=== PATIENT | male | born 1980 | race Caucasian/White ===

== ENCOUNTER 2023-08-18 08:10 | Outpatient (CLI) | payer BC, SELFPAY ==
--- NOTE | 2023-10-07 11:56 | ONC.NURNOTE ---
Received referral to see patient for transfer of care, records needed from [facility]. Faxed request that was scanned into system to appropriate area, will schedule once obtained, patiet aware that waiting on records.
== END 2023-08-18 08:11 | disposition home or self-care (01) ==
LOC: NFLDREF 08-28 13:48
PROVIDERS: PCP Family Medicine; Referring Provider Family Medicine; Visit Provider Family Medicine
DX: E78.00 Pure hypercholesterolemia, unspecified (principal); I10 Essential (primary) hypertension; C81.70 Other Hodgkin lymphoma, unspecified site; M54.12 Radiculopathy, cervical region; R61 Generalized hyperhidrosis; F32.A Depression, unspecified; R00.0 Tachycardia, unspecified
CPT/HCPCS: 80061; 82306; 82607; 84270; 84402; 84403; 84443; 86140; 86480

== ENCOUNTER 2023-12-21 12:52 | Outpatient (RCR) | payer BC, SELFPAY ==
[2023-12-10 13:01] LABS: Basophils Absolute Auto 0.05 K/uL (0.00-0.30); Basophils Percent Auto 0.7 % (0.0-3.0); Eosinophils Absolute Auto 0.15 K/uL (0.00-0.50); Eosinophils Percent Auto 2.2 % (0.0-7.0); Hematocrit 47.4 % (37.0-53.0); Immature Granulocytes Abs Auto 0.03 K/uL (0.00-0.30); Immature Granulocytes Pct Auto 0.4 %; Lymphocytes Absolute Auto 1.97 K/uL (0.90-2.90); Mean Corpuscular HGB Conc 34 gm/dL (32-36); Mean Corpuscular Hemoglobin 30 pg (26-34); Mean Corpuscular Volume 88 fL (80-100); Monocytes Percent Auto 8.4 % (0.0-11.0); Neutrophils Absolute Auto 4.02 K/uL (1.7-7.0); Neutrophils Percent Auto 59.3 % (42.0-72.0); Platelet Count* 226 K/uL (140-440); Red Blood Count 5.38 m/uL (4.30-5.90); Slide Review Reflex No; White Blood Count* 6.79 K/uL (4.50-11.00)
[2023-12-10 13:14] LABS: Albumin* 5.1 g/dL (3.3-5.0); Chloride* 101 mmol/L (96-114)
[2023-12-10 13:15] LABS: Potassium* 4.4 mmol/L (3.6-5.1); Sodium* 138 mmol/L (135-149)
[2023-12-10 13:17] LABS: Anion Gap 8 mEq/L (7-15); Bilirubin Total* 0.9 mg/dL (0.1-1.5); Carbon Dioxide* 29 mmol/L (20-32); Creatinine* 0.9 mg/dL (0.5-1.5); Estimated Glomerular Filt Rate 108 ml/min
[2023-12-10 13:18] LABS: Alanine Aminotransferase* 60 U/L (4-50); Alkaline Phosphatase* 79 U/L (40-150); Aspartate Amino Transferase* 43 U/L (12-35); Blood Urea Nitrogen* 12 mg/dL (5-24); Calcium* 9.3 mg/dL (8.4-10.6); Glucose* 88 mg/dL (60-115); Lactate Dehydrogenase* 202 U/L (120-246)
[2023-12-10 13:43] LABS: Erythrocyte SedimentationRate* 10 mm/hr (2-15)
--- NOTE | 2023-12-21 08:31 | ONC.NURNOTE ---
Patient called to check on his appointment time for the day. It was noted that this was not on the schedule. Clinic nurse to work with the provider to see if can call patient or fit him in.
== END 2024-04-16 23:59 | disposition home or self-care (01) ==
LOC: CCIC 12:52
PROVIDERS: PCP Family Medicine; Referring Provider Family Medicine; Visit Provider Internal Medicine Hematology & Oncology
DX: C81.70 Other Hodgkin lymphoma, unspecified site (principal); G58.8 Other specified mononeuropathies; K21.9 Gastro-esophageal reflux disease without esophagitis
CPT/HCPCS: 36415; 78815; 80053; 83615; 85025; 85651; 99202; 99204; 99213; 99214; G0463; A9552

== ENCOUNTER 2024-01-11 06:55 | Outpatient (CLI) | payer BC, SELFPAY ==
--- OUTSIDE RECORDS SUMMARY | 2024-01-11 06:57 | XMS_ITS | Referral Summary ---
Author Organization [place] Address [address] [place] [address] Care Team Providers Care Boarding Mother Name Role Phone Mary Gupta RN Unavailable [phone] Nasim Holcomb PsyD Unavailable Nasim Holcomb PsyD Unavailable [phone] No Ref-Primary, Physician Primary Care Provider Oleg Fleming Unavailable [phone] Allergies Active Allergy Reactions Criticality Noted Date Comments No Known Drug Allergy 10/07/2003 Medications Medication Sig Dispensed Refills Start Date End Date Status propranolol (INDERAL) 60 MG tablet Take 60 mg by mouth Active escitalopram (LEXAPRO) 10 MG tablet Take 1 tablet by mouth daily at 2 pm 11/28/2022 Active tadalafil (CIALIS) 5 MG tablet Take 5 mg by mouth as needed Active Active Problems Problem Noted Date Diagnosed Date Adjustment disorder with mixed anxiety and depre ssed mood 12/17/2022 Dehydration 01/06/2022 Classical Hodgkin lymphoma 12/27/2021 Chemotherapy-induced neutropenia (H24) Nausea 12/27/2021 CARDIOVASCULAR SCREENING; LDL GOAL LESS THAN 160 04/21/2010 Esophageal reflux Resolved Problems Problem Noted Date Diagnosed Date Resolved Date 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 No 05/13/2022 Within the last year, have y ou been humiliated or emotionally abused in other ways by your partner or ex-partner? No Within the last year, have y ou been kicked, hit, slapped, or otherwise physically hurt by your partner or ex-partner? No 05/13/2022 Within the last year, have y ou been raped or forced to have any kind of sexual activity by your partner or ex-partner? No 05/13/2022 PHQ-2 Answer Date Recorded PHQ-2 Score 2 12/17/2022 Adolescent Education Answer Date Record ed Getting School Help Needed Not on file 03/14 Sex and Gender Information Value Date Recorded Sex Assigned at Not on file Gender Identity Not on file Sexual Orientation Not on file Last Filed Vital Signs Vital Sign Reading Time Taken Comments Blood Pressure 125/85 08/28/2023 1:52 PM PARTY CHIEF Pulse 80 08/28/2023 1:52 PM PARTY CHIEF Temperature 36.3 ??C (97.4 ??F) 08/28/2023 1:52 PM CS T Respiratory Rate 12 08/28/2023 1:52 PM PARTY CHIEF Oxygen Saturation 98% 08/28/2023 1:52 PM PARTY CHIEF Inhaled Oxygen Concentration - - Weight 85.1 kg (187 lb 11.2 oz) 08/28/2023 1:52 PM PARTY CHIEF Height 176.5 cm (5' 9.49) 08/28/2023 1:52 PM CS T Body Mass Index 27.33 08/28/2023 1:52 PM PARTY CHIEF Plan of Treatment Not on file Procedures Procedure Name Priority Date/Time Associated Diagnosis Comments COMPREHENSIVE METABOLIC PANEL Routine 08/28/2023 1:48 PM PARTY CHIEF Classical Hodgkin lymphoma (H) LIPID REFLEX TO DIRECT LDL PANEL Routine 07/23/2015 9:07 AM PARTY CHIEF CARDIOVASCULAR SCREENING; LDL GOAL LESS THAN 160 from Last 3 Months or Most Recently Relevant to Health Maintenance Results * (ABNORMAL) Comprehensive metabolic panel (08/28/2023 1:48 PM PARTY CHIEF) [facility] Sodium 140 135 - 145 mmol/L 08/28/2023 2:11 PM [facility] Comment:Reference intervals for this test were updated on 03/17/2023 to more accurately reflect our healthy population. There may be differences in the flagging of prior results with similar values performed with this method. Interpretation of those prior results can be made in the context of the updated reference intervals. Potassium 4.1 3.4 - 5.3 mmol/L 08/28/2023 2:11 PM [facility] Carbon Dioxide (CO2) 28 22 - 29 mmol/L 08/28/2023 2:11 PM [facility] Anion Gap 10 7 - 15 mmol/L 08/28/2023 2:11 PM [facility] Urea Nitrogen 8.5 6.0 - 20.0 mg/dL 08/28/2023 2:11 PM [facility] Creatinine 0.97 0.67 - 1.17 mg/dL 08/28/2023 2:11 PM [facility] GFR Estimate >90 >60 mL/min/1. 73m2 08/28/2023 2:11 PM [facility] Calcium 9.2 8.6 - 10.0 mg/dL 08/28/2023 2:11 PM [facility] Chloride 102 98 - 107 mmol/L 08/28/2023 2:11 PM [facility] Glucose 109(H) 70 - 99 mg/dL 08/28/2023 2:11 PM [facility] Alkaline Phosphatase 85 40 - 150 U/L 08/28/2023 2:11 PM [facility] Comment:Reference intervals for this test were updated on 05/05/2023 to more accurately reflect our healthy population. There may be differences in the flagging of prior results with similar values performed with this method. Interpretation of those prior results can be made in the context of the updated reference intervals. AST 31 0 - 45 U/L 08/28/2023 2:11 PM [facility] Comment:Reference intervals for this test were updated on 12/01/2022 to more accurately reflect our healthy population. There may be differences in the flagging of prior results with similar values performed with this method. Interpretation of those prior results can be made in the context of the updated reference intervals. ALT 43 0 - 70 U/L 08/28/2023 2:11 PM PARTY CH[facility] Comment:Reference intervals for this test were updated on 12/01/2022 to more accurately reflect our healthy population. There may be differences in the flagging of prior results with similar values performed with this method. Interpretation of those prior results can be made in the context of the updated reference intervals. Protein Total 7.5 6.4 - 8.3 g/dL 08/28/2023 2:11 PM PARTY CH[facility] Albumin 4.6 3.5 - 5.2 g/dL 08/28/2023 2:11 PM [facility] Bilirubin Total 0.3 <=1.2 mg/dL 08/28/2023 2:11 PM [facility]Y CH[facility] Blood STRUCTURE OF LEFT UPPER LIMB / Unknown Venipuncture / Unknown 08/28/2023 1:48 PM PARTY CHIEF 08/28/2023 1:52 PM PARTY CHIEF Yoana Moss DO LAB - BLOOD ORDERABL ES [facility] Acute Care Lab [address] Lab (1st floor, no room number) [place] [phone], [facility] [phone] * LIPID REFLEX TO DIRECT LDL PANEL (07/23/2015 9:07 AM PARTY CHIEF) Cholesterol 160 <200 mg/dL [facility] Triglycerides 103 <150 mg/dL [facility] Comment:Fasting specimen HDL Cholesterol 47 >39 mg/dL [facility] LDL Cholesterol Calculated 92 <100 mg/dL [facility] Comment:Desirable: <100 mg/d l Non HDL Cholesterol 113 <130 mg/dL [facility] Blood specimen (specimen) 07/23/2015 9:07 AM PARTY CHIEF 07/23/2015 9:08 AM PARTY CHIEF Camacho Carpenter MD LAB - BLOOD ORDERABL ES [facility] [address] [place] [address] from Last 3 Months or Most Recently Relevant to Health Maintenance Care Teams Boarding Mother Relationship Specialty Start Date End Date No Ref-Primary, Physician PCP - General 01/21/23 Mary Gupta RN Specialty Earring Maker Hematology & Oncology 12/31/21 Nasim Holcomb PsyD [address] [place], [place] [id number] Psychologist PSYCHOLOGIST CLINICAL 12/16/22 Nasim Holcomb PsyD [address] [place], [place] [id number] Assigned Behavioral Health Provider 01/03/23 Oleg Fleming PA [address] [place] [address] Assigned Cancer Care Provider 11/12/23
--- OUTSIDE RECORDS SUMMARY | 2024-01-11 06:57 | XMS_ITS ---
Author Organization [place] Address [address] [place] [address] Care Team Providers Care Neonatal Icu Coordinator Name Role Phone Mary Gupta RN Unavailable [phone] Nasim Holcomb PsyD Unavailable [phone] Nasim Holcomb PsyD Unavailable [phone] No Ref-Primary, Physician Primary Care Provider Oleg Fleming Unavailable [phone] Active Problems Problem Noted Date Diagnosed Date Adjustment disorder with mixed anxiety and depre ssed mood 12/17/2022 Dehydration 01/06/2022 Classical Hodgkin lymphoma 12/27/2021 Chemotherapy-induced neutropenia (H24) 2 Nausea 12/27/2021 CARDIOVASCULAR SCREENING; LDL GOAL LESS THAN 160 04/21/2010 Esophageal reflux Current Oncology Plans No current plan information found. Past Plans ONCOLOGY TREATMENT Plan Name Start Date Discontinue Date Treatment Medications Discontinue Reason Plan Provider Cycles OP ONC Lymphoma and CLL - A + AVD (Brentuximab vedotin / DOXOrubicin / vinBLAStine / Dacarbazine) 01/08/20 22 08/20/2022 brentuximab (ADCETRIS) infusiondacarbazine (DTIC)dacarbazine (DTIC) infusionDOXOrubicin (ADRIAMYCIN)vinBLASti ne (VELBAN) infusion Therapy Complete Yoana Moss 6 of 6 cycles started Radiation Treatments * No radiation treatments are documented for this patient in [facility]. Treatments may have been administered in another system. 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
--- OUTSIDE RECORDS SUMMARY | 2024-01-11 06:57 | XMS_ITS | Clinical Summary ---
Author Organization [place] Address [address] [place] [address] Care Team Providers Care Electric Power Line Repairer Name Role Phone Mary Gupta RN Unavailable [phone] Nasim Holcomb PsyD Unavailable Nasim Holcomb PsyD Unavailable [phone] No Ref-Primary, Physician Primary Care Provider Oleg Fleming Unavailable [phone] Allergies Active Allergy Reactions Criticality Noted Date [...] 03/27/2010 MMR 04/02/1992 TDAP Vaccine (Adacel) 02/13/2010 Family History Medical History Relation Comments Diabetes Brother 1 Depression Mother Diabetes Mother Type 2 Gastrointestinal Disease Mother Dariana ddkhoi Depression Sister Gastrointestinal Disease Sister Dariana ddkhoi Colon Cancer No family hx of Relation Status Comments Brother 1 Alive Brother 2 Alive Brother 3 Alive Father Alive Mother Alive Sister Alive Son Alive Social History Tobacco Use Types Packs/Day Years [...] Comments Blood Pressure 125/85 08/28/2023 1:52 PM QUALITY ASSURANCE LEAD Pulse 80 08/28/2023 1:52 PM QUALITY ASSURANCE LEAD Temperature 36.3 ??C (97.4 ??F) 08/28/2023 1:52 PM CS T Respiratory Rate 12 08/28/2023 1:52 PM QUALITY ASSURANCE LEAD Oxygen Saturation 98% 08/28/2023 1:52 PM QUALITY ASSURANCE LEAD Inhaled Oxygen Concentration - - Weight 85.1 kg (187 lb 11.2 oz) 08/28/2023 1:52 PM QUALITY ASSURANCE LEAD Height 176.5 cm (5' 9.49) 08/28/2023 1:52 PM CS T Body Mass Index 27.33 08/28/2023 1:52 PM QUALITY ASSURANCE LEAD Plan of Treatment Health Maintenance Due Date Last Done Comments ADVANCE CARE PLANNING 1979 ANNUAL REVIEW OF HM ORDERS 1979 Pneumococcal Vaccine: Pediatrics (0 to 5 Years) and At-Risk Patients (6 to 64 Years) (1 of 2 - PCV) 1985 HIV SCREENING 1994 HEPATITIS C SCREENING 1997 HEPATITIS B IMMUNIZATION (1 of 3 - 19+ 3-dose series) 1998 LIPID 07/23/2020 07/23/2015, 08/2009, 10/17/2002 YEARLY PREVENTIVE VISIT 08/26/2022 08/26/2021, 02/13 COVID-19 Vaccine ( season) 2023 05/18/2021, 09/23/2020 PHQ-2 (once per calendar year) 2023 12/17/2022, 12/17/2022, 07/23/2015 INFLUENZA VACCINE (#1) 2024 , 07/04/2022, 07/04/2022, Additional history exists GLUCOSE 08/27/2026 08/28/2023, 07/2023, 02/27/2023, Additional history exists DTAP/TDAP/TD IMMUNIZATION (3 - Td or Tdap) 08/27/2031 08/26/2021, 02/13/2010 HPV IMMUNIZATION Aged Out No longer e ligible based on patient's age to complete this topic IPV IMMUNIZATION Aged Out No longer e ligible based on patient's age to complete this topic MENINGITIS IMMUNIZATION Aged Out No l onger eligible based on patient's age to complete this topic RSV MONOCLONAL ANTIBODY Aged Out No l onger eligible based on patient's age to complete this topic Procedures Procedure Name Priority Date/Time Associated Diagnosis Comments COMPREHENSIVE METABOLIC PANEL Routine 08/28/2023 1:48 PM QUALITY ASSURANCE LEAD Classical Hodgkin lymphoma (H) LIPID REFLEX TO DIRECT LDL PANEL Routine 07/23/2015 9:07 AM QUALITY ASSURANCE LEAD CARDIOVASCULAR SCREENING; LDL GOAL LESS THAN 160 from Last 3 Months or Most Recently Relevant to Health Maintenance Results * (ABNORMAL) Comprehensive metabolic panel (08/28/2023 1:48 PM QUALITY ASSURANCE LEAD) Sodium 140 135 - 145 mmol/L 08/28/2023 2:11 PM [facility] Comment:Reference intervals for this test were updated on 03/17/2023 to more accurately reflect our healthy population. There may be differences in the flagging of prior results with similar values performed with this method. Interpretation of those prior results can be made in the context of the updated reference intervals. Potassium 4.1 3.4 - 5.3 mmol/L 08/28/2023 2:11 PM [facility] Carbon Dioxide (CO2) 28 22 - 29 mmol/L 08/28/2023 2:11 PM [facility] Anion Gap 10 7 - 15 mmol/L 08/28/2023 2:11 PM [facility] Urea Nitrogen 8.5 6.0 - 20.0 mg/dL 08/28/2023 2:11 PM [facility] Creatinine 0.97 0.67 - 1.17 mg/dL 08/28/2023 2:11 PM [facility] GFR Estimate >90 >60 mL/min/1. 73m2 08/28/2023 2:11 PM [facility] Calcium 9.2 8.6 - 10.0 mg/dL 08/28/2023 2:11 PM [facility] Chloride 102 98 - 107 mmol/L 08/28/2023 2:11 PM [facility] Glucose 109(H) 70 - 99 mg/dL 08/28/2023 2:11 PM [facility] Alkaline Phosphatase 85 40 - 150 U/L 08/28/2023 2:11 PM [facility] Comment:Reference intervals for this test were updated on 05/05/2023 to more accurately reflect our healthy population. There may be differences in the flagging of prior results with similar values performed with this method. Interpretation of those prior results can be made in the context of the updated reference intervals. AST 31 0 - 45 U/L 08/28/2023 2:11 PM [facility] Comment:Reference intervals for this test were updated on 12/01/2022 to more accurately reflect our healthy population. There may be differences in the flagging of prior results with similar values performed with this method. Interpretation of those prior results can be made in the context of the updated reference intervals. ALT 43 0 - 70 U/L 08/28/2023 2:11 PM [facility] Comment:Reference intervals for this test were updated on 12/01/2022 to more accurately reflect our healthy population. There may be differences in the flagging of prior results with similar values performed with this method. Interpretation of those prior results can be made in the context of the updated reference intervals. Protein Total 7.5 6.4 - 8.3 g/dL 08/28/2023 2:11 PM QUALITY ASSURANCE LEAD [facility] Albumin 4.6 3.5 - 5.2 g/dL 08/28/2023 2:11 PM QUALITY ASSURANCE LEAD [facility] Bilirubin Total 0.3 <=1.2 mg/dL 08/28/2023 2:11 PM QUALITY ASSURANCE LEAD [facility] Blood STRUCTURE OF LEFT UPPER LIMB / Unknown Venipuncture / Unknown 08/28/2023 1:48 PM QUALITY ASSURANCE LEAD 08/28/2023 1:52 PM QUALITY ASSURANCE LEAD Yoana Moss DO LAB - BLOOD ORDERABL ES [facility] Acute Care Lab [address] Lab (1st floor, no room number) [place] [address], [facility] [phone] * LIPID REFLEX TO DIRECT LDL PANEL (07/23/2015 9:07 AM QUALITY ASSURANCE LEAD) Cholesterol 160 <200 mg/dL [facility] Triglycerides 103 <150 mg/dL [facility] Comment:Fasting specimen HDL Cholesterol 47 >39 mg/dL [facility] LDL Cholesterol Calculated 92 <100 mg/dL [facility] Comment:Desirable: <100 mg/d l Non HDL Cholesterol 113 <130 mg/dL [facility] Blood specimen (specimen) 07/23/2015 9:07 AM QUALITY ASSURANCE LEAD 07/23/2015 9:08 AM QUALITY ASSURANCE LEAD Camacho Carpenter MD LAB - BLOOD ORDERABL ES [facility] [address] [place] [address] from Last 3 Months or Most Recently Relevant to Health Maintenance Care Teams Electric Power Line Repairer Relationship Specialty Start Date End Date No Ref-Primary, Physician PCP - General 01/21/23 Mary Gupta, RN Specialty Travelift Operator Hematology & Oncology 12/31/21 Nasim Holcomb PsyD [address] [place], [place] [address] Psychologist PSYCHOLOGIST CLINICAL 12/16/22 Nasim Holcomb PsyD [address] [place], [place] [address] Assigned Behavioral Health Provider 01/03/23 Oleg Fleming PA [address] [place], [place] [address] Assigned Cancer Care Provider 11/12/23
--- OUTSIDE RECORDS SUMMARY | 2024-01-11 06:58 | XMS_ITS | Encounter Summary ---
Author Organization [place] Address [address] [place] [address] Care Team Providers Care English As A Second Language Instructor Name Role Phone Liu Gay MD Primary Car e Provider Camacho Carpenter MD Primary Care Provider [phone] Camacho Carpenter MD Unavailable [phone] Camacho Carpenter MD Unavailable [phone] Mary Gupta RN Unavailable [phone] Yoana Moss DO Unavailable [phone] Tereza Mallory MD Unavailable [phone] [facility]- Primary Care Provider Naism Holcomb PsyD Unavailable [phone] Oleg Burch Unavailable Unavailable Nasim Holcomb PsyD Unavailable [phone] No Ref-Primary, Physician Primary Care Provider Oleg Fleming Unavailable [phone] Yoana Moss DO Unavailable [phone] Oleg Fleming Unavailable [phone] Encounter Details Date Type Department Care Team (Late st Contact Info) Description 07/09/2010 [facility] [address] [address] Liu Gay MD [facility] [employer] [facility] [address] [place] [address] Social History Tobacco Use Types Packs/Day Years Used Date Smoking Tobacco: Never Alcohol Use Standard Drinks/Week Comments Yes 0 (1 standard drink = 0.6 oz pur e alcohol) occasionally Sex and Gender Information Value Date Recorded Sex Assigned at Not on file Gender Identity Not on file Sexual Orientation Not on file documented as of this encounter Miscellaneous Notes * Telephone Encounter - Laura Hussein - 08/26/2010 3:41 PM CST Mailed 08/05/[address] BAILIFF documented in this encounter Plan of Treatment Not on file documented as of this encounter Visit Diagnoses Not on filedocumented in this encounter Additional Health Concerns Infection Onset Date Last Indicated Resolved Time Rule Out COVID-19 05/26/2022 05/26/2022 05/26/2022 11:[address] BAILIFF documented as of this encounter Care Teams English As A Second Language Instructor Relationship Specialty Start Date End Date Liu Gay MD [employer] [address] [place] [address] PCP - General 09/24/02 04/01/15 [place] [address] [place] [address] PCP - General Family Practice 12/11/15 08/27/22 [place] [address] [place] [address] PCP - Assigned PCP 07/29/15 07/24/18 [facility] [address] [place] [address] PCP - General 08/28/22 01/20/23 No Ref-Primary, Physician PCP - General 01/21/23 [place] [address] [place] [address] Assigned PCP 07/29/15 07/24/18 Mary Gupta, MARIBETH Specialty Senior Publications Specialist Hematology & Oncology 12/31/21 [place] [address] [place] [address] Assigned Cancer Care Provider 01/04/22 07/15/23 Tereza Mallory MD [address] [place] [address] Assigned Infectious Disease Provider 05/31/22 12/12/23 Nasim Holcomb PsyD [address] [place] [address] Psychologist PSYCHOLOGIST CLINICAL 12/16/22 Oleg Burch LSW Specialty Senior Publications Specialist 12/18/22 02/03/23 Nasim Holcomb PsyD [address] [place] [address] Assigned Behavioral Health Provider 01/03/23 Oleg Fleming PA [address] [place] [address] Assigned Cancer Care Provider 07/16/23 07/23/23 [place] [address] [place] [address] [place] [address] Assigned Cancer Care Provider 07/24/23 11/11/23 Oleg Fleming PA [address] [place] [address] Assigned Cancer Care Provider 11/12/23 documented as of this encounter
--- OUTSIDE RECORDS SUMMARY | 2024-01-11 06:58 | XMS_ITS | Referral Summary ---
Author Organization [facility] Address [address] [place] [address] Care Team Providers Care Clinical Trial Head Name Role Phone Francisco Hopkins Primary Care Provider Unavailab le Allergies No known active allergies Medications Medication Sig Dispensed Refills Start Date End Date Status propranoloL (INDERAL LA) 60 mg oral extended release capsule 24 HR Take 60 mg by mouth once daily. Active nirmatrelvir-riton avir (PAXLOVID) 300 mg (150 mg x 2)-100 mg oral tab Take 300 mg nirmatrelvir (two pink tablets) and 100 mg ritonavir (one white tablet) two times daily for five days following package instructions. 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 Monthly or less 12/14/2021 Q2: How many drinks containi ng alcohol do you have on a typical day when you are drinking? Patient does not drink Q3: How often do you have si x or more drinks on one occasion? Never 12/14/2021 Sex and Gender Information Value Date Recorded Sex Assigned at Not on file Gender Identity Not on file Sexual Orientation Not on file Last Filed Vital Signs Vital Sign Reading Time Taken Comments Blood Pressure 131/85 12/19/2021 6:09 PM CDT Pulse 118 12/19/2021 6:09 PM CDT Temperature 38.8 ??C (101.9 ??F) 12/19/2021 6:09 PM C DT Respiratory Rate 18 12/19/2021 6:09 PM CDT Oxygen Saturation 98% 12/19/2021 6:09 PM CDT Inhaled Oxygen Concentration - - Weight 66.7 kg (147 lb) 12/14/2021 5:24 PM CDT Height 177.8 cm (5' 10) 12/14/2021 5:24 PM CDT Body Mass Index 21.09 12/14/2021 5:24 PM CDT Plan of Treatment Not on file Medical Devices Implanted Type Area Concierge Receptionist Device Identifier Shelf Expiration Date Model / Serial / Lot Powerport Jamil [place] 6fr - [id number] Implanted:Qty: 1 on 12/19/2021 by Hasmukh Ceja APRN, CAKE CUTTER MACHINE at [facility] Right: [employer] [id number] 10/19/2022 [id number] / / [id number] Procedures Procedure Name Priority Date/Time Associated Diagnosis Comments HEP A/B/C PANEL Routine 12/15/2021 1:59 PM CDT from Last 3 Months or Most Recently Relevant to Health Maintenance Results * Hepatitis A/B/C Panel (12/15/2021 1:59 PM CDT) HEP BC IGM MAXIMO Non-React fritz Non-React fritz ATELLICA ANALYZER 12/15/2021 5:44 PM CDT [facility] HEP A IGM MAXIMO Non-React fritz Non-React fritz ATELLICA ANALYZER 12/15/2021 5:44 PM CDT [facility] HEP BS ANTIGEN Non-React fritz Non-React fritz ATELLICA ANALYZER 12/15/2021 5:44 PM CDT [facility] Hepatitis C Antibody Non-React fritz Non-React fritz ATELLICA ANALYZER 12/15/2021 5:44 PM CDT [facility] Blood 12/15/2021 1:59 PM CDT 12/15/2021 2:22 PM CDT Kenya Birch MD IMMUNOLOGY ORDERABLE [facility] [address] [place] [address] from Last 3 Months or Most Recently Relevant to Health Maintenance Advance Directives For more information, please contact: [phone] * Full Code (Latest Code Status on File) Date Activated Date Inactivated Comments 12/14/2021 6:12 PM 12/20/2021 12:47 AM Question Answer Comments How was code status determined? Patient Care Teams Clinical Trial Head Relationship Specialty Start Date End Date Francisco Hopkins PCP - General 12/14/21
--- OUTSIDE RECORDS SUMMARY | 2024-01-11 06:58 | XMS_ITS | Encounter Summary ---
Author Organization [facility] Address [address] [place] [address] Care Team Providers Care Produce Field Merchandiser Name Role Phone Liu Gay MD Primary Car e Provider Camacho Carpenter MD Primary Care Provider [phone] Camacho Carpenter MD Unavailable [phone] Camacho Carpenter MD Unavailable [phone] Mary Gupta RN Unavailable [phone] Yoana Moss DO Unavailable [phone] Tereaz Mallory MD Unavailable [phone] [facility]- Primary Care Provider Nasim Holcomb PsyD Unavailable [phone] Oleg Burch Unavailable Unavailable Nasim Holcomb PsyD Unavailable [phone] No Ref-Primary, Physician Primary Care Provider Oleg Fleming Unavailable [phone] Yoana Moss DO Unavailable [phone] Oleg Fleming Unavailable [phone] Encounter Details Date Type Department Care Team (Late st Contact Info) Description 06/26/2010 [facility] [address] [phone] Liu Gay MD [employer] [address] [place] [address] Social History Tobacco Use Types Packs/Day Years Used Date Smoking Tobacco: Never Alcohol Use Standard Drinks/Week Comments Yes 0 (1 standard drink = 0.6 oz pur e alcohol) occasionally Sex and Gender Information Value Date Recorded Sex Assigned at Not on file Gender Identity Not on file Sexual Orientation Not on file documented as of this encounter Plan of Treatment Not on file documented as of this encounter Visit Diagnoses Not on filedocumented in this encounter Additional Health Concerns Infection Onset Date Last Indicated Resolved Time Rule Out COVID-19 05/26/2022 05/26/2022 05/26/2022 11:56 AM INFORMATION ENGINEER documented as of this encounter Care Teams Produce Field Merchandiser Relationship Specialty Start Date End Date Liu Gay MD [employer] [facility] [address] [place] [address] PCP - General 09/24/02 04/01/15 [place] [address] [place] [address] PCP - General Family Practice 12/11/15 08/27/22 [place] [address] [place] [address] PCP - Assigned PCP 07/29/15 07/24/18 [facility] [address], [place] [address] PCP - General 08/28/22 01/20/23 No Ref-Primary, Physician PCP - General 01/21/23 [place] [address] [place] [address] Assigned PCP 07/29/15 07/24/18 Mary Gupta, RN Specialty Merchandiser Retail Representative Hematology & Oncology 12/31/21 [place] [address] [place] [address] Assigned Cancer Care Provider 01/04/22 07/15/23 Tereza Mallory MD [address] [place] [address] 791065 Assigned Infectious Disease Provider 05/31/22 12/12/23 Nasim Holcomb PsyD [address] [place] [address] Psychologist PSYCHOLOGIST CLINICAL 12/16/22 Oleg Burch LSW Specialty Merchandiser Retail Representative 12/18/22 02/03/23 Nasim Holcomb PsyD [address] [place] [address] Assigned Behavioral Health Provider 01/03/23 Oleg Fleming PA [address] [place] [address] Assigned Cancer Care Provider 07/16/23 07/23/23 [place] [address] [place] [address] Assigned Cancer Care Provider 07/24/23 11/11/23 Oleg Fleming PA [address] [place] [address] Assigned Cancer Care Provider 11/12/23 documented as of this encounter
--- OUTSIDE RECORDS SUMMARY | 2024-01-11 06:58 | XMS_ITS | Encounter Summary ---
Author Organization [facility] Address [address] [place] [address] Care Team Providers Care Metal Pickling Equipment Operator Name Role Phone Liu Gay MD Primary Car e Provider Camacho Carpenter MD Primary Care Provider [phone] Camacho Carpenter MD Unavailable [phone] Camacho Carpenter MD Unavailable [phone] Mary Gupta RN Unavailable [phone] Yoana Moss DO Unavailable [phone] Tereza Mallory MD Unavailable [phone] [facility]- Primary Care Provider Nasim Holcomb PsyD Unavailable [phone] Oleg Burch Unavailable Unavailable Nasim Holcomb PsyD Unavailable [phone] No Ref-Primary, Physician Primary Care Provider Oleg Fleming Unavailable [phone] Yoana Moss DO Unavailable [phone] Oleg Fleming Unavailable [phone] Reason for Visit * Reason Onset Date Comments Medication Question 02/14/2010 Questions ab out Prednisone Encounter Details Date Type Department Care Team (Late st Contact Info) Description 02/14/2010 MyC Medical Advice [facility] [address] [place] [address] Liu Gay MD [employer] [address] [place] [address] Medication Question (Questions about Predn... Social History Tobacco Use Types Packs/Day Years [...] Out COVID-19 05/26/2022 05/26/2022 05/26/2022 11:56 AM MUNICIPAL FIREFIGHTER documented as of this encounter Care Teams Metal Pickling Equipment Operator Relationship Specialty Start Date End Date Liu Gay MD [employer] [address] [place] [address] PCP - General 09/24/02 04/01/15 [place] [address] [place] [address] PCP - General Family Practice 12/11/15 08/27/22 [place] [address] [place] [address] PCP - Assigned PCP 07/29/15 07/24/18 [facility]- [address] [place] [address] PCP - General 08/28/22 01/20/23 No Ref-Primary, Physician PCP - General 01/21/23 [place] [address] [place], [place] [address] Assigned PCP 07/29/15 07/24/18 Mary Gupta, MARIBETH Specialty Food Operations Manager Hematology & Oncology 12/31/21 [place] [address] [place] [address] Assigned Cancer Care Provider 01/04/22 07/15/23 eTreza Mallory MD [address] [place] [address] Assigned Infectious Disease Provider 05/31/22 12/12/23 Nasim Holcomb PsyD [address] [place] [address] Psychologist PSYCHOLOGIST CLINICAL 12/16/22 Oleg Burch LSW Specialty Food Operations Manager 12/18/22 02/03/23 Nasim Holcomb PsyD [address] [place] [address] Assigned Behavioral Health Provider 01/03/23 Oleg Fleming PA [address] [place] [address] 135835 Assigned Cancer Care Provider 07/16/23 07/23/23 [place] [address] [place] [address] Assigned Cancer Care Provider 07/24/23 11/11/23 Oleg Fleming PA [address] [place] [address] Assigned Cancer Care Provider 11/12/23 documented as of this encounter
--- OUTSIDE RECORDS SUMMARY | 2024-01-11 06:58 | XMS_ITS | Encounter Summary ---
Author Organization [facility] Address [address] [place] [address] Care Team Providers Care Sql Server Dba Developer Name Role Phone Camacho Carpenter MD Primary Care Provider [phone] Mary Gupta RN Unavailable [phone] Yoana Moss DO Unavailable [phone] Tereza Mallory MD Unavailable [phone] [facility]- Primary Care Provider Nasim Holcomb PsZari Unavailable Oleg Burch Unavailable Unavailable Nasim HolcombyD Unavailable [phone] No Ref-Primary, Physician Primary Care Provider Oleg Fleming Unavailable [phone] Yoana Moss DO Unavailable [phone] Oleg Fleming Unavailable [phone] Reason for Visit * Reason Onset Date Comments rash follow up 04/03/2022 Encounter Details Date Type Department Care Team (Late st Contact Info) Description 04/03/2022 [facility] [address] [place] [address] [address] [facility] [place] [phone] [place] [address] [place], [place] 9826[address] rash follow up Social History Tobacco Use Types Packs/Day Years Used Date Smoking Tobacco: Never Smokeless Tobacco: Never Alcohol Use Standard Drinks/Week Comments Yes 0 (1 standard drink = 0.6 oz pur e alcohol) occasionally Humiliation, Afraid, Rape, and Kick questionnair e Answer Date Recorded Within the last year, have y ou been afraid of your partner or ex-partner? No 01/20/2022 Within the last year, have y ou been humiliated or emotionally abused in other ways by your partner or ex-partner? No Within the last year, have y ou been kicked, hit, slapped, or otherwise physically hurt by your partner or ex-partner? No 01/20/2022 Within the last year, have y ou been raped or forced to have any kind of sexual activity by your partner or ex-partner? No 01/20/2022 PHQ-2 Answer Date Recorded PHQ-2 Score 2 07/07/2018 Sex and Gender Information Value Date Recorded Sex Assigned at Not on file Gender Identity Not on file Sexual Orientation Not on file COVID-19 Exposure Response Date Recorded In the last 10 days, have yo u been in contact with someone who was confirmed or suspected to have Coronavirus/COVID-19? No / Unsure 04/03/2022 1:56 PM CDT documented as of this encounter Miscellaneous Notes * Telephone Encounter - Ivanna Correa RN - 04/03/2022 2:41 PM CDT Pt called triage line back to discuss his rash. Pt said he had a rash last time after his infusion (03/19/22). He was going to send a picture of his previous rash, but by the time he got around to sending the picture, the rash disappeared. Pt said last infusion his rash was under his eyes. This time, patient said the rash was on his neck. Pt sent an image attached to his Aveillant message. Per viewing the picture, not an obvious rash was identified. Pt had C4D1 Doxorubicin/Vinblastine/Dacarbazine yesterday 04/02/22. Pt said the rash is going away already now. He denies itchy throat, swelling, fever, headache, shortness of breath, chest pain, or any other new symptoms. He denies feeling flushedor hot. He said he is actually feeling pretty good. Explained to patient that he can take Benadryl PRN for rash, but patient said he doesn't think he needs it now as the rash is going away. Encouraged patient to call us back if the rash worsens or if he develops any other symptoms. Pt voiced understanding. Rippler will route message to Dr. Moss if she has any concerns or further advise/suggestions. Ivanna Correa RN, BSN Triage Nurse Advisor [facility] [phone] * Telephone Encounter - Ivanna Correa RN - 04/03/2022 2:01 PM CDT Called patient as a follow up to his Aveillant message he sent today regarding a rash. [place] and requested to call us back. Told patient he can call clinic when he is able and ask to be transferred to the triage line so we can help him. Pt voiced understanding. Awaiting a return call. Ivanna Correa RN, BSN Triage Nurse Advisor [facility] [phone] documented in this encounter Plan of Treatment Not on file documented as of this encounter Visit Diagnoses Not on filedocumented in this encounter Additional Health Concerns Infection Onset Date Last Indicated Resolved Time Rule Out COVID-19 05/26/2022 05/26/2022 05/26/2022 11:56 AM DONOR RECRUITER documented as of this encounter Care Teams Sql Server Dba Developer Relationship Specialty [place] [address] [place] [address] PCP - General Family Practice 12/11/15 08/27/22 [facility]- [address] [place] [address] PCP - General 08/28/22 01/20/23 No Ref-Primary, Physician PCP - General 01/21/23 Mary Gupta RN Specialty Data Security Coordinator Hematology & Oncology 12/31/21 [place] [address] [place] [address] Assigned Cancer Care Provider 01/04/22 07/15/23 Tereza Mallory MD [address] [place] [address] 076975 Assigned Infectious Disease Provider 05/31/22 12/12/23 Nasim Holcomb PsyD [address] [place] [address] 307275 Psychologist PSYCHOLOGIST CLINICAL 12/16/22 Oleg Burch LSW Specialty Data Security Coordinator 12/18/22 02/03/23 Nasim Holcomb PsyD [address] [place] [address] Assigned Behavioral Health Provider 01/03/23 Oleg Fleming PA [address] [place] [address] 552415 Assigned Cancer Care Provider 07/16/23 07/23/23 [place] [address] [place] [address] Assigned Cancer Care Provider 2/2/24 5/22/24 Oleg Fleming PA [address] [place] [address] Assigned Cancer Care Provider 11/12/23 documented as of this encounter
--- OUTSIDE RECORDS SUMMARY | 2024-01-11 06:58 | XMS_ITS | Encounter Summary ---
Author Organization [facility] Address [address] [place] [address] Care Team Providers Care Relief Driller Name Role Phone Camacho Carpenter MD Primary Care Provider [phone] Mary Gupta RN Unavailable [phone] Yoana Moss DO Unavailable [phone] Tereza Mallory MD Unavailable [phone] [facility]- Primary Care Provider Nasim Holcomb PsyD Unavailable Oleg Burch Unavailable Unavailable Nasim Holcomb PsyD Unavailable [phone] No Ref-Primary, Physician Primary Care Provider Oleg Fleming Unavailable [phone] Yoana Moss DO Unavailable [phone] Oleg Fleming Unavailable [phone] Encounter Details Date Type Department Care Team (Late st Contact Info) Description 06/06/2022 MyC Medical Advice [facility] [place] [id number] [place] [address] [address] [facility] [place] [phone] Mary Gupta, RN Social History Tobacco Use Types Packs/Day Years [...] suspected to have Coronavirus/COVID-19? No / Unsure 06/04/2022 12:56 PM FREQUENCY CHECKER documented as of this encounter Plan of Treatment Not on file documented as of this encounter Visit Diagnoses Not on filedocumented in this encounter Care Teams Relief Driller Relationship Specialty [place] [address] [place] [address] PCP - General Family Practice 12/11/15 08/27/22 [facility]- [address], [place] [address] PCP - General 08/28/22 01/20/23 No Ref-Primary, Physician PCP - General 01/21/23 Mary Gupta, MARIBETH Specialty Applications Tester Hematology & Oncology 12/31/21 [place] [address] [place] [address] Assigned Cancer Care Provider 01/04/22 07/15/23 Tereza Mallory MD [address] [place] [address] 228605 Assigned Infectious Disease Provider 05/31/22 12/12/23 Nasim Holcomb PsyD [address] [place] [address] 617855 Psychologist PSYCHOLOGIST CLINICAL 12/16/22 Oleg Burch LSW Specialty Applications Tester 12/18/22 02/03/23 Nasim Holcomb PsyD [address] [place] [address] 444235 Assigned Behavioral Health Provider 01/03/23 Oleg Fleming PA [address] [place] [address]0015 Assigned Cancer Care Provider 07/16/23 07/23/23 [place] [address] [place] [address] Assigned Cancer Care Provider 07/24/23 11/11/23 Oleg Fleming PA [address] [place] [address] Assigned Cancer Care Provider 11/12/23 documented as of this encounter
--- OUTSIDE RECORDS SUMMARY | 2024-01-11 06:58 | XMS_ITS | Encounter Summary ---
Author Organization [facility] Address [address] [place] [address] Care Team Providers Care Waste And Batting Waste Chopper Name Role Phone Liu Gay MD Primary Car e Provider Camacho Carpenter MD Primary Care Provider [phone] Camacho Carpenter MD Unavailable Camacho Carpenter MD Unavailable [phone] Mary Gupta RN Unavailable [phone] Yoana Moss DO Unavailable [phone] Tereza Mallory MD Unavailable [phone] [facility]- Primary Care Provider Nasim Holcomb PsyD Unavailable [phone] Oleg Burch Unavailable Unavailable Nasim Holcomb PsyD Unavailable [phone] No Ref-Primary, Physician Primary Care Provider Oleg Fleming Unavailable [phone] Yoana Moss DO Unavailable [phone] Oleg Fleming Unavailable [phone] Encounter Details Date Type Department Care Team (Late st Contact Info) Description 07/05/2010 [facility] [address] [address] Liu Gay MD [employer] [facility] [address] [place] [address] Social History Tobacco Use Types Packs/Day Years [...] Out COVID-19 05/26/2022 05/26/2022 05/26/2022 11:56 AM QA LEAD documented as of this encounter Care Teams Waste And Batting Waste Chopper Relationship Specialty Start Date End Date Liu Gay MD [employer] [facility] [address] [place] [address] PCP - General 09/24/02 04/01/15 [place] [address] [place] [address] PCP - General Family Practice 12/11/15 08/27/22 [place] [address] [place] [address] PCP - Assigned PCP 07/29/15 07/24/18 [facility]- [address] [place] [address] PCP - General 08/28/22 01/20/23 No Ref-Primary, Physician PCP - General 01/21/23 [place] [address] [place] [address] Assigned PCP 07/29/15 07/24/18 Mary Gupta, MARIBETH Specialty Survey Data Technician Hematology & Oncology 12/31/21 [place] [address] [place] [address] Assigned Cancer Care Provider 01/04/22 07/15/23 Tereza Mallory MD [address] [place] [address] 232835 Assigned Infectious Disease Provider 05/31/22 12/12/23 Nasim Holcomb PsyD [address] [place] [address] Psychologist PSYCHOLOGIST CLINICAL 12/16/22 Oleg Burch LSW Specialty Survey Data Technician 12/18/22 02/03/23 Nasim Holcomb PsyD [address] [place] [address] Assigned Behavioral Health Provider 01/03/23 Oleg Fleming PA [address] [place] [address] Assigned Cancer Care Provider 07/16/23 07/23/23 [place] [address] [place] [address] Assigned Cancer Care Provider 07/24/23 11/11/23 Oleg Fleming PA [address] [place] [address] Assigned Cancer Care Provider 11/12/23 documented as of this encounter
--- OUTSIDE RECORDS SUMMARY | 2024-01-11 06:58 | XMS_ITS | Encounter Summary ---
Author Organization [facility] Address [address] [place] [address] Care Team Providers Care Edger Automatic Name Role Phone Camacho Carpenter MD Primary Care Provider [phone] Mary Gupta RN Unavailable [phone] Yoana Moss DO Unavailable [phone] Tereza Mallory MD Unavailable [phone] [facility]- Primary Care Provider Nasim Holcomb PsZari Unavailable [phone] Oleg Burch Unavailable Unavailable Nasim Holcomb PsyD Unavailable No Ref-Primary, Physician Primary Care Provider Oleg Fleming Unavailable [phone] Yoana Moss DO Unavailable [phone] Oleg Fleming Unavailable [phone] Encounter Details Date Type Department Care Team (Late st Contact Info) Description 06/12/2022 [facility] Advice [facility] [address] [facility] [place] [phone] [place] [address] [place] [address] Social History Tobacco Use Types Packs/Day Years [...] suspected to have Coronavirus/COVID-19? No / Unsure 06/11/2022 9:51 AM RAILROAD SWITCHMAN documented as of this encounter Plan of Treatment Not on file documented as of this encounter Visit Diagnoses Not on filedocumented in this encounter Care Teams Edger Automatic Relationship Specialty [place] [address] [place] [address] PCP - General Family Practice 12/11/15 08/27/22 [facility]- [address] [place] [address] PCP - General 08/28/22 01/20/23 No Ref-Primary, Physician PCP - General 01/21/23 Mary Gupta RN Specialty Autocad Operator Hematology & Oncology 12/31/21 [place] [address] [place] [address] Assigned Cancer Care Provider 01/04/22 07/15/23 Tereza Mallory MD [address] [place] [address] 153625 Assigned Infectious Disease Provider 05/31/22 12/12/23 Nasim Holcomb PsyD [address] [place] [address] 750175 Psychologist PSYCHOLOGIST CLINICAL 12/16/22 Oleg Burch LSW Specialty Autocad Operator 12/18/22 02/03/23 Nasim Holcomb PsyD [address] [place] [address] Assigned Behavioral Health Provider 01/03/23 Oleg Fleming PA [address] [place] [address] 698265 Assigned Cancer Care Provider 07/16/23 07/23/23 [place] [address] [place] [address] Assigned Cancer Care Provider 07/24/23 11/11/23 Oleg Fleming PA [address] [place] [address] 820325 Assigned Cancer Care Provider 11/12/23 documented as of this encounter
--- OUTSIDE RECORDS SUMMARY | 2024-01-11 06:58 | XMS_ITS ---
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 Past Plans CHEMOTHERAPY Plan Name Start Date Discontinue Date Treatment Medications Discontinue Reason Plan Provider Cycles 1720 A + AVD HODGKIN'S LYMPHOMA 12/20/19 22 03/24/2023 brentuximab vendotin ( ADCETRIS ) IV infusiondacarbazine ( DTIC ) IV infusionDOXOrubicin (ADRIAMYCIN)vinBLASti ne (VELBAN) IV infusion Therapy Complete Rani Culver MD Treatment not started 884 H[facility]GK[facility]'S LYMPHOMA ABVD 12/18/19 22 12/18/2021 bleomycin ( BLENOXANE ) IV infusiondacarbazine ( DTIC ) IV infusionDOXOrubicin (ADRIAMYCIN)vinBLASti ne (VELBAN) IV infusion Entered in Error Rani Culver MD Treatment not started Radiation Treatments * No radiation treatments are documented for this patient in [facility]. Treatments may have been administered in another system. Lifetime Dose Tracking * Chemical Lifetime Dose Automatic Entry Manual Entr y CT Radiation 362.2 mGy 362.2 mGy 0 mGy
--- OUTSIDE RECORDS SUMMARY | 2024-01-11 06:58 | XMS_ITS | Clinical Summary ---
Author Organization [facility] Address [address] [place] [address] Care Team Providers Care Dried Yeast Supervisor Name Role Phone Francisco Hopkins Primary Care [...] 12/15/2021 GI bleed 12/14/2021 Lymphadenopathy Pulmonary infiltrates Family History Medical History Relation Comments No Known Problems Father Diabetes Mother Relation Status Comments Father Mother Social History Tobacco Use Types Packs/Day Years [...] 12/14/2021 5:24 PM CDT Plan of Treatment Health Maintenance Due Date Last Done Comments Lipid Screening 1979 Anxiety Screening (PINEDA-2) 1980 Depression Assessment (PHQ-2) 1980 Pneumococcal <65 (1 of 2 - PCV) 1985 COVID-19 Vaccine (3 - season) 2023, 09/23/2020 Influenza Vaccine (#1) 2024 04/23/2020 Adult Tetanus Booster 08/27/2031 08/26/2021, 010 Hepatitis C Screening Completed 12/15/2021 Medical Devices Implanted Type Area Office Machines Teacher Device Identifier Shelf Expiration Date Model / Serial / Lot Powerport Jamil [place] 6fr - [id number] Implanted:Qty: 1 on 12/19/2021 by Hasmukh Ceja, FARMWORKER, ROUND UP RING HAND at [facility] Right: [facility] [id number] 10/19/2022 [id number] / / [id number] Procedures Procedure Name Priority Date/Time Associated Diagnosis Comments HEP A/B/C PANEL Routine 12/15/2021 1:59 PM CDT from Last 3 Months or Most Recently Relevant to Health Maintenance Results * Hepatitis A/B/C Panel (12/15/2021 1:59 PM CDT) HEP BC IGM MAXIMO Non-React fritz Non-React fritz ATELLICA ANALYZER 12/15/2021 5:44 PM CDT [facility] HEP A IGM MAXIMO Non-React fritz Non-React fritz ATELLICA ANALYZER 12/15/2021 5:44 PM CDT [facility] HEP BS ANTIGEN Non-React fritz Non-React fritz ATELLICA ANALYZER 12/15/2021 5:44 PM CDT [facility] Hepatitis C Antibody Non-React fritz Non-React fritz ATELLICA ANALYZER 12/15/2021 5:44 PM CDT [facility] Blood 12/15/2021 1:59 PM CDT 12/15/2021 2:22 PM CDT Kenya Birch MD IMMUNOLOGY ORDERABLE Performing Organization Address City/State/[facility] Co de Phone Number [facility] [address] [place] [address] from Last 3 Months or Most Recently Relevant to Health Maintenance Advance Directives For more information, please contact: [phone] * Full Code (Latest Code Status on File) Date Activated Date Inactivated Comments 12/14/2021 6:12 PM 12/20/2021 12:47 AM Question Answer Comments How was code status determined? Patient Care Teams Dried Yeast Supervisor Relationship Specialty Start Date End Date Francisco Hopkins: [phone] PCP - General 12/14/21
--- OUTSIDE RECORDS SUMMARY | 2024-01-11 06:58 | XMS_ITS | Continuity of Care Document ---
Author Organization [facility] Address [address] [address] [place] [address] Phone Care Team Providers Care Dance Coach Name Role Phone Woo DUNBAR, Gamaliel Unavailable Unavailab le Procedures Procedure Date Init Inpt Cons New/est Mod-hi 2 Ugi Endo; W/contrl Bleed Any M 22 Advance Directives Directive Yes / No Effective Date File Name No Information Encounters Encounter Description Practice Location Reason(s) For Visit Diagnoses Date Provider Providers Copied on Encounter [facility], [address] [address], [place], [place], [id number], [place] tel:[phone] [facility] No Information Woo Alston. [address] [place] [address], [place] [address], [place], [place], [id number], [place]. tel:[phone] Init Inpt Cons New/est Mod-hi [facility], [address] [address], [place], [place], [id number], [place] tel:[phone] [facility] No Information Woo Alston. [address] [place] [address], [place] [address], [place], [place], [id number], [place]. tel:[phone] Referring Provider: Gamaliel Berkowitz MD, [address] [place] [address], [place], [address] . tel:[phone] Family History Family Member Type Diagnosis Age At Onset No Information Payers Payer name Insurance type Covered republican ID Authoriza tion(s) No Information Social History Type Description Quantity Date Captured Comments Sex Male Smoking Status No Information Chief Complaint And Reason For Visit No Information Reason For Referral Reason For Referral No Information History Of Present Illness Encounter Date Complaint History Of Prese nt Illness No Information Functional Status Date Functional Assessmen t No Information Instructions Date Instruction Additional Infor mation No Information Assessments Type Assessment Date No Information Patient Care Teams Name Effective Dates (start - stop) Status Members No Information
--- OUTSIDE RECORDS SUMMARY | 2024-01-11 06:58 | XMS_ITS | Encounter Summary ---
Author Organization [facility] Address [address] [place] [address] Care Team Providers Care Automotive Manufacturer Name Role Phone Camacho Carpenter MD Primary Care Provider [phone] Mary Gupta RN Unavailable [phone] Yoana Moss DO Unavailable [phone] Tereza Mallory MD Unavailable [phone] [facility]- Primary Care Provider Nasim Holcomb PsyD Unavailable [phone] Oleg Burch Unavailable Unavailable Nasim Holcomb PsyD Unavailable No Ref-Primary, Physician Primary Care Provider Oleg Fleming Unavailable [phone] Yoana Moss DO Unavailable [phone] Oleg Fleming Unavailable [phone] Encounter Details Date Type Department Care Team (Late st Contact Info) Description 03/19/2022 [facility] Medical Advice [facility] [address] [place] [address] [facility] [place] [phone] [place] [address] [place] [address] Social History Tobacco Use Types [...] suspected to have Coronavirus/COVID-19? 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- [address] [place] [address] PCP - General 08/28/22 01/20/23 No Ref-Primary, Physician PCP - General 01/21/23 Mary Gupta, RN Specialty Sql Server Bi Developer Hematology & Oncology 12/31/21 [place] [address] [place] [address] Assigned Cancer Care Provider 01/04/22 07/15/23 Tereza Mallory MD [address] [place] [address] [phone] Assigned Infectious Disease Provider 05/31/22 12/12/23 Nasim Holcomb PsyD [address] [place] [address] 047215 Psychologist PSYCHOLOGIST CLINICAL 12/16/22 Oleg Burch LSW Specialty Sql Server Bi Developer 12/18/22 02/03/23 Nasim Holcomb PsyD [address] [place] [address] 898025 Assigned Behavioral Health Provider 01/03/23 Oleg Fleming PA [address] [place] [address] 837855 Assigned Cancer Care Provider 07/16/23 07/23/23 [place] [address] [place] [address] Assigned Cancer Care Provider 07/24/23 11/11/23 Oleg Fleming PA [address] [place] [address] 344615 Assigned Cancer Care Provider 11/12/23 documented as of this encounter
--- OUTSIDE RECORDS SUMMARY | 2024-01-11 06:58 | XMS_ITS | Encounter Summary ---
Author Organization [facility] Address [address] [place] [address] Care Team Providers Care Developmental Therapist Name Role Phone Mary uGpta RN Unavailable [phone] Shailesh Moss DO Unavailable [phone] Tereza Mallory MD Unavailable [phone] [facility]- Primary Care Provider Nasim HolcombyD Unavailable Oleg Burch Unavailable Unavailable Nasim Holcomb PsyD Unavailable [phone] No Ref-Primary, Physician Primary Care Provider Oleg Fleming Unavailable [phone] Shailesh Moss DO Unavailable [phone] Oleg Fleming Unavailable [phone] Encounter Details Date Type Department Care Team (Late st Contact Info) Description 09/19/2022 [facility] [address] [place] [address] [facility] [place] [phone] [place] [address] [place], [place] [id number] Neuropathy Social History Tobacco Use Types Packs/Day Years [...] suspected to have Coronavirus/COVID-19? No / Unsure 09/05/2022 6:59 AM CDT documented as of this encounter Miscellaneous Notes * Telephone Encounter - Mary Gupta RN - 09/22/2022 12:07 PM CDT Signed Prescriptions: Disp Refills gabapentin (NEURONTIN) 100 MG capsule 90 cap*3 Sig: Take 3 capsules (300 mg) by mouth 3 times daily Authorizing Provider: SHAILESH MOSS RN on 09/22/2022 at 12:07 PM * Telephone Encounter - Mary Gupta RN - 09/22/2022 11:43 AM CDT Pending Prescriptions: Disp Refills gabapentin (NEURONTIN) 100 MG capsule 90 cap*3 Sig: Take 1 capsule (100 mg) by mouth 3 times daily Last Written Prescription Date: 06/26/22 Last Fill Quantity: 90, # refills: 3 Last Office Visit: 08/20/22 Future Office visit: 12/09/22 Routing refill request to provider for review/approval. Mary Gupta RN on 09/22/2022 at 11:44 AM * Telephone Encounter - Mary Gupta RN - 09/22/2022 11:41 AM CDT Images from the original note were not included. Shailesh Moss, DO You 3 days ago JL Yes, can increase to 300 mg TID. Telegraph Operator spoke with Catalino about Dr. Moss's recommendations. He verbalized understanding and is agreeable. He is requesting a refill of this medication to reflect new dose. Catalino to contact clinic with any questions or concerns. Mary Gupta RN on 09/22/2022 at 11:43 AM * Telephone Encounter - Maria Antonia Wilson RN - 09/19/2022 9:16 AM CDT Please refer to [email or web address] message. Patient states neuropathy on feet has been getting worse at night.He is feeling pins and needles and sometimes numbness. Per patient, It feels like there are rocks at the end of my feet. During the day discomfort is rated at 2/10. At night this increases to 4-5/10. He is able to perform all needed activities. No other sx noted. He otherwise feels great. He is currently taking Gabapentin 100 mg TID. Patient is wondering if an increase in Gabapentin would be helpful? Routing to care team to review and advise. Maria Antonia Wilson RN, BSN, PHN, OCN [facility] documented in this encounter Plan of Treatment Not on file documented as of this encounter Visit Diagnoses Diagnosis Neuropathy Mononeuritis of unspecified site documented in this encounter Care Teams Developmental Therapist Relationship Specialty Start Date End Date [facility]- [address] [place] [address] PCP - General 08/28/22 01/20/23 No Ref-Primary, Physician PCP - General 01/21/23 Mary Gupta, MARIBETH Specialty Machine Operator Cane Cutter Hematology & Oncology 12/31/21 [place] [address] [place] [address] Assigned Cancer Care Provider 01/04/22 07/15/23 Tereza Mallory MD [address] [place] [address] Assigned Infectious Disease Provider 05/31/22 12/12/23 Nasim Holcomb PsyD [address] [place] [address] Psychologist PSYCHOLOGIST CLINICAL 12/16/22 Oleg Burch LSW Specialty Machine Operator Cane Cutter 12/18/22 02/03/23 Nasim Holcomb PsyD [address] [place] [address] Assigned Behavioral Health Provider 01/03/23 Oleg Fleming PA [address] [place] [address] Assigned Cancer Care Provider 07/16/23 07/23/23 [place] [address] [place] [address] Assigned Cancer Care Provider 07/24/23 11/11/23 Oleg Fleming PA [address] [place] [address] Assigned Cancer Care Provider 11/12/23 documented as of this encounter
--- OUTSIDE RECORDS SUMMARY | 2024-01-11 06:58 | XMS_ITS | Encounter Summary ---
Author Organization [facility] Address [address] [place] [address] Care Team Providers Care Front Counter Clerk Name Role Phone Camacho Carpenter MD Primary Care Provider [phone] Mary Gupta RN Unavailable [phone] Yoana Moss DO Unavailable [phone] Tereza Mallory MD Unavailable [phone] [facility]- Primary Care Provider Nasim Holcomb PsyD Unavailable Oleg Burch Unavailable Unavailable Nasim Holcomb PsyD Unavailable [phone] No Ref-Primary, Physician Primary Care Provider Oleg Fleming Unavailable [phone] Yoana Moss DO Unavailable [phone] Oleg Fleming Unavailable [phone] Encounter Details Date Type Department Care Team (Late st Contact Info) Description 02/03/2022 [facility] Medical Advice [facility] [place] [address] [place] [address] [address] [facility] [place] [place] [phone] Diamond Hernandez PA-C [address] [facility] [address] [place] [address] Social History Tobacco Use Types Packs/Day Years [...] suspected to have Coronavirus/COVID-19? No / Unsure 02/04/2022 7:48 AM CDT documented as of this encounter Plan of Treatment Not on file documented as of this encounter Visit Diagnoses Not on filedocumented in this encounter Additional Health Concerns Infection Onset Date Last Indicated Resolved Time Rule Out COVID-19 05/26/2022 05/26/2022 05/26/2022 11:56 AM ASSEMBLER INSULATOR documented as of this encounter Care Teams Front Counter Clerk Relationship Specialty [place] [address] [place] [address] PCP - General Family Practice 12/11/15 08/27/22 [facility]- [address] [place] [address] PCP - General 08/28/22 01/20/23 No Ref-Primary, Physician PCP - General 01/21/23 Mary Gupta, RN Specialty Director Equipment Hematology & Oncology 12/31/21 [place] [address] [place] [address] Assigned Cancer Care Provider 01/04/22 07/15/23 Tereza Mallory MD [address] [place] [address] 482635 Assigned Infectious Disease Provider 05/31/22 12/12/23 Nasim Holcomb PsyD [address] [place] [address] 744205 Psychologist PSYCHOLOGIST CLINICAL 12/16/22 Oleg Burch LSW Specialty Director Equipment 12/18/22 02/03/23 Nasim Holcomb PsyD [address] [place] [address] 154035 Assigned Behavioral Health Provider 01/03/23 Oleg Fleming PA [address] [place] [address] 096365 Assigned Cancer Care Provider 07/16/23 07/23/23 [place] [address] [place] [address] Assigned Cancer Care Provider 07/24/23 11/11/23 Oleg Fleming PA [address] [place], [place] 127[address] Assigned Cancer Care Provider 11/12/23 documented as of this encounter
--- OUTSIDE RECORDS SUMMARY | 2024-01-11 06:58 | XMS_ITS | Encounter Summary ---
Author Organization [facility] Address [address] [place] [address] Care Team Providers Care Emr Analyst Name Role Phone Camacho Carpenter MD Primary Care Provider [phone] Mary Gupta RN Unavailable [phone] Yoana Moss DO Unavailable [phone] Tereza Mallory MD Unavailable [phone] [facility]- Primary Care Provider Nasim Holcomb PsyD Unavailable Oleg Burch Unavailable Unavailable Nasim HolcombyD Unavailable [phone] No Ref-Primary, Physician Primary Care Provider Oleg Fleming Unavailable [phone] Yoana Moss DO Unavailable [phone] Oleg Fleming Unavailable [phone] Encounter Details Date Type Department Care Team (Late st Contact Info) Description 03/11/2022 [facility] Medical Advice [facility] [address] [place] [address] [facility] [place] [phone] [place] [address] [place] [address] Classical Hodgkin lymphoma (H) (Primary Dx); Chemotherapy-induced neutropenia (H24); Nausea Social History Tobacco Use Types Packs/Day Years [...] suspected to have Coronavirus/COVID-19? 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 documented as of this encounter Care Teams Emr Analyst Relationship Specialty [place] [address] [place] [address] PCP - General Family Practice 12/11/15 08/27/22 [facility]- [address] [place] [address] PCP - General 08/28/22 01/20/23 No Ref-Primary, Physician PCP - General 01/21/23 Mary Gupta, MARIBETH Specialty Nurse'S Assistant Hematology & Oncology 12/31/21 [place] [address] [place] [address] Assigned Cancer Care Provider 01/04/22 07/15/23 Tereza Mallory MD [address] [place] [address] Assigned Infectious Disease Provider 05/31/22 12/12/23 Nasim Holcomb PsyD [address] [place] [address] Psychologist PSYCHOLOGIST CLINICAL 12/16/22 Oleg Burch LSW Specialty Nurse'S Assistant 12/18/22 02/03/23 Nasim Holcomb PsyD [address] [place] [address] Assigned Behavioral Health Provider 01/03/23 Oleg Fleming PA [address] [place] [address] Assigned Cancer Care Provider 07/16/23 07/23/23 [place] [address] [place] [address] Assigned Cancer Care Provider 07/24/23 11/11/23 Oleg Fleming PA [address] [place] [address] Assigned Cancer Care Provider 11/12/23 documented as of this encounter
--- OUTSIDE RECORDS SUMMARY | 2024-01-11 06:58 | XMS_ITS | Encounter Summary ---
Author Organization [facility] Address [address] [place] [address] Care Team Providers Care Rn Progressive Care Unit Name Role Phone Mary Gupta RN Unavailable [phone] Yoana Moss DO Unavailable [phone] Tereza Mallory MD Unavailable [phone] [facility]- Primary Care Provider Nasim Holcomb PsyD Unavailable [phone] Oleg Burch Unavailable Unavailable Nasim Holcomb PsyD Unavailable [phone] Ref-Primary, Physician Primary Care Provider Oleg Fleming Unavailable [phone] Yoana Moss DO Unavailable [phone] Oleg Fleming Unavailable [phone] Encounter Details Date Type Department Care Team (Late st Contact Info) Description 01/06/2023 [facility] Care Coordination [facility] [place] [address] Oleg Burch LSW Social History Tobacco Use Types Packs/Day Years [...] Answer Date Recorded PHQ-2 Score 2 12/17/2022 Sex and Gender Information Value Date Recorded Sex Assigned at Not on file Gender Identity Not on file Sexual Orientation Not on file COVID-19 Exposure Response Date Recorded In the last 10 days, have yo u been in contact with someone who was confirmed or suspected to have Coronavirus/COVID-19? No / Unsure 12/16/2022 3:46 PM CDT documented as of this encounter Plan of Treatment Not on file documented as of this encounter Visit Diagnoses Not on filedocumented in this encounter Additional Health Concerns Assessment Noted Time PHQ-9 Depression Total Score: 4 12/17/19 3:46 PM CDT documented as of this encounter Care Teams Rn Progressive Care Unit Relationship Specialty Start Date End Date [facility]- [address] [place] [address] PCP - General 08/28/22 01/20/23 No Ref-Primary, Physician PCP - General 01/21/23 Mary Gupta, MARIBETH Specialty Territory Representative Hematology & Oncology 12/31/21 [place] [address] [place] [address] Assigned Cancer Care Provider 01/04/22 07/15/23 Tereza Mallory MD [address] [place], [place] 262105 Assigned Infectious Disease Provider 05/31/22 12/12/23 Nasim Holcomb PsyD [address] [place] [address]38 Psychologist PSYCHOLOGIST CLINICAL 12/16/22 Oleg Burch LSW Specialty Territory Representative 12/18/22 02/03/23 Nasim Holcomb PsyD [address] [place] [address] Assigned Behavioral Health Provider 01/03/23 Oleg Fleming PA [address] [place] [address] Assigned Cancer Care Provider 07/16/23 07/23/23 [place] [address] [place] [address] Assigned Cancer Care Provider 07/24/23 11/11/23 Oleg Fleimng PA [address] [place] [address] 856675 Assigned Cancer Care Provider 11/12/23 documented as of this encounter
--- OUTSIDE RECORDS SUMMARY | 2024-01-11 06:58 | XMS_ITS | Encounter Summary ---
Author Organization [facility] Address [address] [place] [address]. [place] [address] Care Team Providers Care Ed Tech Name Role Phone Camacho Carpenter MD Primary Care Provider [phone] Mary Gupta RN Unavailable [phone] Yoana Moss DO Unavailable [phone] Tereza Mallory MD Unavailable [phone] [facility]- Primary Care Provider Nasim Holcomb PsyD Unavailable Oleg Burch Unavailable Unavailable Nasim Holcomb PsyD Unavailable [phone] Ref-Primary, Physician Primary Care Provider Oleg Fleming Unavailable [phone] Yoana Moss DO Unavailable [phone] Oleg Fleming Unavailable [phone] Encounter Details Date Type Department Care Team (Late st Contact Info) Description 01/20/2022 [facility] Cancer [facility] [id number] [place] [address] DR VAL[address]ZUELA [address] [facility] [place] [address] Oleg Fleming PA [address] [place] [address] Social History Tobacco Use Types [...] suspected to have Coronavirus/COVID-19? 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 documented as of this encounter Care Teams Ed Tech Relationship Specialty [place] [address] [place] [address] PCP - General Family Practice 12/11/15 08/27/22 [facility]- [address] [place] [address] PCP - General 08/28/22 01/20/23 No Ref-Primary, Physician PCP - General 01/21/23 Mary Gupta, RN Specialty Radio Operator Ground Hematology & Oncology 12/31/21 [place] [address]ZUELA [address] [place] [address] Assigned Cancer Care Provider 01/04/22 07/15/23 Tereza Mallory MD [address] [place] [address] 905155 Assigned Infectious Disease Provider 05/31/22 12/12/23 Nasim Holcomb PsyD [address] [place] [address] 768715 Psychologist PSYCHOLOGIST CLINICAL 12/16/22 Oleg Burch LSW Specialty Radio Operator Ground 12/18/22 02/03/23 Nasim Holcomb PsyD [address] [place] [address] 787475 Assigned Behavioral Health Provider 01/03/23 Oleg Fleming PA [address] [place] [address] 848545 Assigned Cancer Care Provider 07/16/23 07/23/23 [place] [address] VAL[address]ZUELA [address] [place] [address] Assigned Cancer Care Provider 07/24/23 11/11/23 Oleg Fleming PA [address] [place], [place] [address] Assigned Cancer Care Provider 11/12/23 documented as of this encounter
--- OUTSIDE RECORDS SUMMARY | 2024-01-11 06:58 | XMS_ITS | Encounter Summary ---
Author Organization [facility] Address [address] [place] [address] Care Team Providers Care Safety Leader Name Role Phone Camacho Carpenter MD Primary Care Provider [phone] Mary Gupta RN Unavailable [phone] Yoana Moss DO Unavailable [phone] Tereza Mallory MD Unavailable [phone] [facility]- Primary Care Provider Nasim Holcomb PsyD Unavailable [phone] Oleg Burch Unavailable Unavailable Nasim Holcomb PsyD Unavailable [phone] No Ref-Primary, Physician Primary Care Provider Oleg Fleming Unavailable [phone] Yoana Moss DO Unavailable [phone] Oleg Fleming Unavailable [phone] Encounter Details Date Type Department Care Team (Late st Contact Info) Description 02/05/2022 [facility] Advice [facility] [address] [place] [address] [address]UELA 200 [facility] [place] [phone] Mary Gupta, RN Social History Tobacco Use [...] Out COVID-19 05/26/2022 05/26/2022 05/26/2022 11:56 AM SITE SUPERINTENDENT documented as of this encounter Care Teams Safety Leader Relationship Specialty [place] [address] [place] [address] PCP - General Family Practice 12/11/15 08/27/22 [facility]- [address], [place] [address] PCP - General 08/28/22 01/20/23 No Ref-Primary, Physician PCP - General 01/21/23 Mary Gupta RN Specialty Account Executive Hematology & Oncology 12/31/21 [place] [address] [facility] [address] [address] [place] [address] Assigned Cancer Care Provider 01/04/22 07/15/23 Tereza Mallory MD [address] [place] [address] 438855 Assigned Infectious Disease Provider 05/31/22 12/12/23 Nasim Holcomb PsyD [address] [place] [address] Psychologist PSYCHOLOGIST CLINICAL 12/16/22 Oleg Burch LSW Specialty Account Executive 12/18/22 02/03/23 Nasim Holcomb PsyD [address] [place] [address] Assigned Behavioral Health Provider 01/03/23 Oleg Fleming PA [address] [place] [address] Assigned Cancer Care Provider 07/16/23 07/23/23 [place] [address] [facility] VAL[facility] [address] [place] [address] Assigned Cancer Care Provider 07/24/23 11/11/23 Oleg Fleming PA [address] [place] [address] 214985 Assigned Cancer Care Provider 11/12/23 documented as of this encounter
--- OUTSIDE RECORDS SUMMARY | 2024-01-11 06:58 | XMS_ITS | Encounter Summary ---
Author Organization [facility] Address [address] [place] [address]. [place] [address] Care Team Providers Care Retail Personal Banker Name Role Phone Camacho Carpenter MD Primary Care Provider [phone] Mary Gupta RN Unavailable [phone] Yoana Moss DO Unavailable [phone] Tereza Mallory MD Unavailable [phone] [facility]- Primary Care Provider Nasim Holcomb PsyD Unavailable [phone] Oleg Burch Unavailable Unavailable Nasim Holcomb PsyD Unavailable [phone] No Ref-Primary, Physician Primary Care Provider Oleg Fleming Unavailable [phone] Yoana Moss DO Unavailable [phone] Oleg Fleming Unavailable [phone] Encounter Details Date Type Department Care Team (Late st Contact Info) Description 08/25/2022 [facility] [address] [place] [address] Milli Willson Social History Tobacco Use Types Packs/Day Years [...] suspected to have Coronavirus/COVID-19? 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 documented as of this encounter Plan of Treatment Not on file documented as of this encounter Visit Diagnoses Not on filedocumented in this encounter Care Teams Retail Personal Banker Relationship Specialty [place] [address] [place] [address] PCP - General Family Practice 12/11/15 08/27/22 [facility] [address] [place] [address] PCP - General 08/28/22 01/20/23 No Ref-Primary, Physician PCP - General 01/21/23 Mary Gupta RN Specialty Hedis Review Nurse Hematology & Oncology 12/31/21 [place] [address] VALENZUELA [address] [place] [address] Assigned Cancer Care Provider 01/04/22 07/15/23 Tereza Mallory MD [address] [place] [address] [phone] Assigned Infectious Disease Provider 05/31/22 12/12/23 Nasim Holcomb PsyD [address] [place] [address] Psychologist PSYCHOLOGIST CLINICAL 12/16/22 Oleg Burch LSW Specialty Hedis Review Nurse 12/18/22 02/03/23 Nasim Holcomb PsyD [address] [place] [address] Assigned Behavioral Health Provider 01/03/23 Oleg Fleming PA [address] [place] [address] Assigned Cancer Care Provider 07/16/23 07/23/23 [place] [address] [place] [address] Assigned Cancer Care Provider 07/24/23 11/11/23 Oleg Fleming PA [address] [place] [address] Assigned Cancer Care Provider 11/12/23 documented as of this encounter
--- OUTSIDE RECORDS SUMMARY | 2024-01-11 06:58 | XMS_ITS | Encounter Summary ---
Author Organization [facility] Address [address] [place] [address]. [place] [address] Care Team Providers Care Mixing Plant Dumper Name Role Phone Camacho Carpenter MD Primary Care Provider [phone] Mary Gupta RN Unavailable [phone] Yoana Moss DO Unavailable [phone] Tereza Mallory MD Unavailable [phone] [facility]- Primary Care Provider Nasim Holcomb PsyD Unavailable Oleg Burch Unavailable Unavailable Nasim Holcomb PsyD Unavailable [phone] No Ref-Primary, Physician Primary Care Provider Oleg Fleming Unavailable [phone] Yoana Moss DO Unavailable [phone] Oleg Fleming Unavailable [phone] Encounter Details Date Type Department Care Team (Late st Contact Info) Description 01/28/[address] [facility] [place] [address] [place] [address] [address] VAL[address]UELA [address] [facility] [place] [address] Oleg Fleming PA [address] [place] [address] Social History Tobacco Use Types [...] suspected to have Coronavirus/COVID-19? No / Unsure 01/27/2022 9:04 AM CDT documented as of this encounter Plan of Treatment Not on file documented as of this encounter Visit Diagnoses Not on filedocumented in this encounter Additional Health Concerns Infection Onset Date Last Indicated Resolved Time Rule Out COVID-19 05/26/2022 05/26/2022 05/26/2022 11:56 AM APPLICATION DEVELOPMENT CONSULTANT documented as of this encounter Care Teams Mixing Plant Dumper Relationship Specialty [place] [address] [place] [address] PCP - General Family Practice 12/11/15 08/27/22 [facility]- [address] [place] [address] PCP - General 08/28/22 01/20/23 No Ref-Primary, Physician PCP - General 01/21/23 Mary Gupta, RN Specialty Crossband Layer Hematology & Oncology 12/31/21 [place] [address] VAL[address]ZUEL[address] 200 [place] [address] Assigned Cancer Care Provider 01/04/22 07/15/23 Tereza Mallory MD [address] [place] [address] [phone] Assigned Infectious Disease Provider 05/31/22 12/12/23 Nasim Holcomb PsyD [address] [place] [address] 830125 Psychologist PSYCHOLOGIST CLINICAL 12/16/22 Oleg Burch LSW Specialty Crossband Layer 12/18/22 02/03/23 Nasim Holcomb PsyD [address] [place] [address] 636925 Assigned Behavioral Health Provider 01/03/23 Oleg Fleming PA [address] [place] [address] 202135 Assigned Cancer Care Provider 07/16/23 07/23/23 [place] [address] [place] [address] Assigned Cancer Care Provider 07/24/23 11/11/23 Oleg Fleming PA 9 [place], [place] 626905 Assigned Cancer Care Provider 11/12/23 documented as of this encounter
--- NOTE | 2024-01-11 09:01 | W.ANESCHARGE ---
Anesthesia Charges Start Date/Time Anesthesia Start Date: 01/11/24 Anesthesia Start Time: 07:55 Stop Date/Time Anesthesia Stop Date: 01/11/24 Anesthesia Stop Time: 08:20
--- NOTE | 2024-01-11 09:27 | W.ANESCHARGE ---
Anesthesia Charges Start Date/Time Anesthesia Start Date: 01/11/24 Anesthesia Start Time: 07:55 Stop Date/Time Anesthesia Stop Date: 01/11/24 Anesthesia Stop Time: 08:20
== END 2024-01-11 06:56 | disposition home or self-care (01) ==
LOC: OP CLINIC 06:56
PROVIDERS: PCP Family Medicine; Visit Provider Surgery
DX: Z12.11 Encounter for screening for malignant neoplasm of colon (principal); K63.5 Polyp of colon; K57.30 Diverticulosis of large intestine without perforation or abscess without bleeding
CPT/HCPCS: 00811; 45385; 88305; J2704

== ENCOUNTER 2024-03-22 07:37 | Outpatient (CLI) | payer BC, SELFPAY ==
--- OUTSIDE RECORDS SUMMARY | 2024-03-23 13:43 | XMS_ITS | Encounter Summary ---
Author Organization [facility] Address [address] [place] [address] Care Team Providers Care Sample Weaver Name Role Phone Mary Gupta RN Unavailable [phone] Yoana Moss DO Unavailable [phone] Tereza Mallory MD Unavailable [phone] [facility]- Primary Care Provider Nasim Holcomb PsyD Unavailable [phone] Oleg Burch Unavailable Unavailable Nasim Holcomb PsyD Unavailable [phone] Ref-Primary, Physician Primary Care Provider Oleg Fleming Unavailable [phone] Yoana Moss DO Unavailable [phone] Oleg Fleming Unavailable [phone] Encounter Details Date Type Department Care Team (Late st Contact Info) Description 01/06/[address] [facility] Medical Adv[facility] Care Coordination [facility] [place] [address] Oleg Burch LSW Social History [...] documented as of this encounter Care Teams Sample Weaver Relationship Specialty Start Date End Date [facility]- [address] [place] [address] PCP - General 08/28/22 01/20/23 No Ref-Primary, Physician PCP - General 01/21/23 Mary Gupta, MARIBETH Specialty Clerical Production Worker Hematology & Oncology 12/31/21 [place] [address] [place] [address] Assigned Cancer Care Provider 01/04/22 07/15/23 Tereza Mallory MD 500 [place], [place] 873915 Assigned Infectious Disease Provider 05/31/22 12/12/23 Nasim Holcomb PsyD [address] [place] [address] Psychologist PSYCHOLOGIST CLINICAL 12/16/22 Oleg Burch LSW Specialty Clerical Production Worker 12/18/22 02/03/23 Nasim Holcomb PsyD [address] [place] [address] Assigned Behavioral Health Provider 01/03/23 Oleg Fleming PA [address] [place] [address]118 Assigned Cancer Care Provider 07/16/23 07/23/23 [place] [address] [place] [address] Assigned Cancer Care Provider 07/24/23 11/11/23 Oleg Fleming PA [address] [place] [address] 482605 Assigned Cancer Care Provider 11/12/23 documented as of this encounter
--- OUTSIDE RECORDS SUMMARY | 2024-03-23 13:43 | XMS_ITS | Encounter Summary ---
Author Organization [facility] Address [address] [place] [address]. [place] [address] Care Team Providers Care Receiving Teller Name Role Phone Camacho Carpenter MD Primary Care Provider [phone] Mary Gupta RN Unavailable [phone] Yoana Moss DO Unavailable [phone] Tereza Mallory MD Unavailable [phone] [facility]- Primary Care Provider Nasim Holcomb PsyD Unavailable [phone] Oleg Burch Unavailable Unavailable Nasim Holcomb PsyD Unavailable [phone] No Ref-Primary, Physician Primary Care Provider Oleg Fleming Unavailable [phone] Yoana Moss DO Unavailable [phone] Oleg Fleming Unavailable [phone] Encounter Details Date Type Department Care Team (Late st Contact Info) Description 08/25/2022 [facility] [address] [place] [address] Milli Willson Social History Tobacco Use [...] Coronavirus/COVID-19? 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 BOBBIN CLEANER documented as of this encounter Plan of Treatment Not on file documented as of this encounter Visit Diagnoses Not on filedocumented in this encounter Care Teams Receiving Teller Relationship Specialty [place] [address] [place] [address] PCP - General Family Practice 12/11/15 08/27/22 [facility] [address] [place] [address] PCP - General 08/28/22 01/20/23 No Ref-Primary, Physician PCP - General 01/21/23 Mary Gupta RN Specialty Manager Basketball Hematology & Oncology 12/31/21 [place] [address] VALENZUELA [address] [place] [address] Assigned Cancer Care Provider 01/04/22 07/15/23 Tereza Mallory MD [address] [place] [address] 758205 Assigned Infectious Disease Provider 05/31/22 12/12/23 Nasim Holcomb PsyD [address] [place] [address] Psychologist PSYCHOLOGIST CLINICAL 12/16/22 Oleg Burch LSW Specialty Manager Basketball 12/18/22 02/03/23 Nasim Holcomb PsyD [address] [place] [address] Assigned Behavioral Health Provider 01/03/23 Oleg Fleming PA [address] [place] [address] Assigned Cancer Care Provider 07/16/23 07/23/23 [place] [address] [place] [address] Assigned Cancer Care Provider 07/24/23 11/11/23 Oleg Fleming PA [address] [place] [address] Assigned Cancer Care Provider 11/12/23 documented as of this encounter
--- OUTSIDE RECORDS SUMMARY | 2024-03-23 13:43 | XMS_ITS | Encounter Summary ---
Author Organization [facility] Address [address] [place] [address] Care Team Providers Care Brick Tester Name Role Phone Camacho Carpenter MD Primary Care Provider [phone] Mary Gupta RN Unavailable [phone] Yoana Moss DO Unavailable [phone] Tereza Mallory MD Unavailable [phone] [facility]- Primary Care Provider Nasim Holcomb PsZari Unavailable Oleg Burch Unavailable Unavailable Nasim Holcomb PsyD Unavailable [phone] Ref-Primary, Physician Primary Care Provider Oleg Fleming Unavailable [phone] Yoana Moss DO Unavailable [phone] Oleg Fleming Unavailable [phone] Encounter Details Date Type Department Care Team (Late st Contact Info) Description 06/12/2022 [facility] [address] [facility] [place] [phone] [place] [address] VAL[address]ZUELA 200 [place] [address] Social History Tobacco Use Types [...] Coronavirus/COVID-19? No / Unsure 06/11/2022 9:51 AM FILTER PRESS TENDER documented as of this encounter Plan of Treatment Not on file documented as of this encounter Visit Diagnoses Not on filedocumented in this encounter Care Teams Brick Tester Relationship Specialty [place] [address] [place] [address] PCP - General Family Practice 12/11/15 08/27/22 [facility]- [address] [place] [address] PCP - General 08/28/22 01/20/23 No Ref-Primary, Physician PCP - General 01/21/23 Mary Gupta RN Specialty Resin Shaver Hematology & Oncology 12/31/21 [place] [address]EL[address] [place] [address] Assigned Cancer Care Provider 01/04/22 07/15/23 Tereza Mallory MD [address] [place] [address] [phone] Assigned Infectious Disease Provider 05/31/22 12/12/23 Nasim Holcomb PsyD [address] [place] [address] 070845 Psychologist PSYCHOLOGIST CLINICAL 12/16/22 Oleg Burch LSW Specialty Resin Shaver 12/18/22 02/03/23 Nasim Holcomb PsyD [address] [place] [address] 19198 Assigned Behavioral Health Provider 01/03/23 Oleg Fleming PA [address] [place] [address] 558755 Assigned Cancer Care Provider 07/16/23 07/23/23 [place] [address] [place] [address] Assigned Cancer Care Provider 07/24/23 11/11/23 Oleg Fleming PA [address] [place] [address] [phone] Assigned Cancer Care Provider 11/12/23 documented as of this encounter
--- OUTSIDE RECORDS SUMMARY | 2024-03-23 13:43 | XMS_ITS | Encounter Summary ---
Author Organization [place] Address [address] [place] [address] Care Team Providers Care Learning Disabilities Teacher Name Role Phone Mary Gupta RN Unavailable [phone] Shailesh Moss DO Unavailable [phone] Tereza Mallory MD Unavailable [phone] [facility]- Primary Care Provider Nasim HolcombyD Unavailable [phone] Oleg Burch Unavailable Unavailable Nasim Holcomb PsyD Unavailable No Ref-Primary, Physician Primary Care Provider Oleg Fleming Unavailable [phone] Shailesh Moss DO Unavailable [phone] Oleg Fleming Unavailable [phone] Encounter Details Date Type Department Care Team (Late st Contact Info) Description 09/19/2022 [facility] [address] [place] [address] [facility] [place] [phone] [place] [address] [place], [place] [id number] Neuropathy Social History Tobacco Use Types Packs/Day [...] Yes, can increase to 300 mg TID. Urban Redevelopment Specialist spoke with Catalino about Dr. Moss's recommendations. He verbalized understanding and is agreeable. He is requesting a refill of this medication to reflect new dose. Catalino to contact clinic with any questions or concerns. Mary Gupta RN on 09/22/2022 at 11:43 AM * Telephone Encounter - Maria Antonia Wilson RN - 09/19/2022 9:16 AM CDT Please refer to City Invoice [employer]anc[employer] message. Patient states neuropathy on feet has [...] Maria Antonia Wilson RN, BSN, PHN, OCN M[facility] documented in this encounter Plan of Treatment Not on file documented as of this encounter Visit Diagnoses Diagnosis Neuropathy Mononeuritis of unspecified site documented in this encounter Care Teams Learning Disabilities Teacher Relationship Specialty Start Date End Date [facility]- [address] [place] [address] PCP - General 08/28/22 01/20/23 No Ref-Primary, Physician PCP - General 01/21/23 Mary Gupta, MARIBETH Specialty Elastic Yarn Twister Hematology & Oncology 12/31/21 [place] [address] [place] [address] Assigned Cancer Care Provider 01/04/22 07/15/23 Tereza Mallory MD [address] [place] [address] Assigned Infectious Disease Provider 05/31/22 12/12/23 Nasim Holcomb PsyD [address] [place] [address] Psychologist PSYCHOLOGIST CLINICAL 12/16/22 Oleg Burch LSW Specialty Elastic Yarn Twister 12/18/22 02/03/23 Nasim Holcomb PsyD [address] [place] [address] Assigned Behavioral Health Provider 01/03/23 Oleg Fleming PA [address] [place] [address] Assigned Cancer Care Provider 07/16/23 07/23/23 [place] [address] [place] [address] Assigned Cancer Care Provider 07/24/23 11/11/23 Oleg Fleming PA [address] [place] [address] Assigned Cancer Care Provider 11/12/23 documented as of this encounter
--- OUTSIDE RECORDS SUMMARY | 2024-03-23 13:43 | XMS_ITS | Clinical Summary ---
Author Organization [place] Address [address] [place] [address] Care Team Providers Care Lei Maker Name Role Phone Mary Gutpa RN Unavailable [phone] Nasim Holcomb PsyD Unavailable [phone] Nasim Holcomb PsyD Unavailable [phone] No Ref-Primary, Physician Primary Care Provider Oleg Fleming Unavailable [phone] Allergies Active Allergy Reactions Criticality Noted Date [...] 01/06/2022 Classical Hodgkin lymphoma 12/27/2021 Chemotherapy-induced neutropenia 12/27/2021 Nausea 12/27/2021 CARDIOVASCULAR SCREENING; LDL GOAL LESS THAN 160 04/21/2010 Esophageal reflux Resolved Problems Problem Noted Date Diagnosed Date Resolved Date 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 Immunizations Name Administration Dates Next Due Influenza (IIV3) PF 03/27/2010 MMR 04/02/1992 TDAP Vaccine (Adacel) 02/13/2010 Family History Medical History Relation Comments Diabetes Brother 1 Depression Mother Diabetes Mother Type 2 Gastrointestinal Disease Mother Dariana dder Depression Sister Gastrointestinal Disease Sister Dariana ddkhoi [...] Comments Blood Pressure 125/85 08/28/2023 1:52 PM VISE HAND Pulse 80 08/28/2023 1:52 PM [facility] Temperature 36.3 ??C (97.4 ??F) 08/28/2023 1:52 PM CS T Respiratory Rate 12 08/28/2023 1:52 PM [facility] Oxygen Saturation 98% 08/28/2023 1:52 PM [facility] Inhaled Oxygen Concentration - - Weight 85.1 kg (187 lb 11.2 oz) 08/28/2023 1:52 PM [facility] Height 176.5 cm (5' 9.49) 08/28/2023 1:52 PM CS T Body Mass Index 27.33 08/28/2023 1:52 PM [facility] Plan of Treatment Health Maintenance Due Date [...] 10/17/2002 YEARLY PREVENTIVE VISIT 08/26/2022 08/26/2021, 02/13 PHQ-2 (once per calendar year) 2023 12/17/2022, 12/17/2022, 07/23/2015 COVID-19 Vaccine ( - 2023- season) 2024 05/18/2021, 09/23/2020 INFLUENZA VACCINE (#1) 2024 , 07/04/2022, 07/04/2022, Additional history exists GLUCOSE 08/27/2026 08/28/2023, 07/2023, 02/27/2023, Additional history exists DTAP/TDAP/TD IMMUNIZATION (3 - Td or Tdap) 08/27/2031 08/26/2021, 02/13/2010 RSV VACCINE (1 - 1-dose 75+ series) 2054 HPV IMMUNIZATION Aged Out No longer e [...] COMPREHENSIVE METABOLIC PANEL Routine 08/28/2023 1:48 PM [facility] Classical Hodgkin lymphoma (H) LIPID REFLEX TO DIRECT LDL PANEL Routine 07/23/2015 9:07 AM [facility] CARDIOVASCULAR SCREENING; LDL GOAL LESS THAN 160 from Last 3 Months or Most Recently Relevant to Health Maintenance Results * (ABNORMAL) Comprehensive metabolic panel (08/28/2023 1:48 PM [facility]) Sodium 140 135 - 145 mmol/L 08/28/2023 2:[address] [facility] Comment:Reference intervals for this test were updated on 03/17/2023 to more accurately reflect our healthy population. There may be differences in the flagging of prior results with similar values performed with this method. Interpretation of those prior results can be made in the context of the updated reference intervals. Potassium 4.1 3.4 - 5.3 mmol/L 08/28/2023 2:[address] [facility] Carbon Dioxide (CO2) 28 22 - 29 mmol/L 08/28/2023 2:[address] [facility] Anion Gap 10 7 - 15 mmol/L 08/28/2023 2:[address] [facility] Urea Nitrogen 8.5 6.0 - 20.0 mg/dL 08/28/2023 2:[address] [facility] Creatinine 0.97 0.67 - 1.17 mg/dL 08/28/2023 2:[address] [facility] GFR Estimate >90 >60 mL/min/1. 73m2 08/28/2023 2:[address] [facility] Calcium 9.2 8.6 - 10.0 mg/dL 08/28/2023 2:[address] [facility] Chloride 102 98 - 107 mmol/L 08/28/2023 2:[address] [facility] Glucose 109(H) 70 - 99 mg/dL 08/28/2023 2:[address] [facility] Alkaline Phosphatase 85 40 - 150 U/L 08/28/2023 2:[address] [facility] Comment:Reference intervals for this test were updated on 05/05/2023 to more accurately reflect our healthy population. There may be differences in the flagging of prior results with similar values performed with this method. Interpretation of those prior results can be made in the context of the updated reference intervals. AST 31 0 - 45 U/L 08/28/2023 2:11 PM [facility] Comment:Reference intervals for this test were updated on 12/01/2022 to more accurately reflect our healthy population. There may be differences in the flagging of prior results with similar values performed with this method. Interpretation of those prior results can be made in the context of the updated reference intervals. ALT 43 0 - 70 U/L 08/28/2023 2:[address] [facility] Comment:Reference intervals for this test were updated on 12/01/2022 to more accurately reflect our healthy population. There may be differences in the flagging of prior results with similar values performed with this method. Interpretation of those prior results can be made in the context of the updated reference intervals. Protein Total 7.5 6.4 - 8.3 g/dL 08/28/2023 2:11 PM [facility] Albumin 4.6 3.5 - 5.2 g/dL 08/28/2023 2:11 PM [facility] Bilirubin Total 0.3 <=1.2 mg/dL 08/28/2023 2:11 PM [facility] Blood STRUCTURE OF LEFT UPPER LIMB / Unknown Venipuncture / Unknown 08/28/2023 1:48 PM [facility] 08/28/2023 1:52 PM [facility] Yoana Moss DO LAB - BLOOD ORDERABL ES LABORATORY [facility] Acute [facility] Lab [address] Lab (1st floor, no room number) [place] [address], [facility] [phone] * LIPID REFLEX TO DIRECT LDL PANEL (07/23/2015 9:07 AM [facility]) Cholesterol 160 <200 mg/dL [facility] Triglycerides 103 <150 mg/dL [facility] Comment:Fasting specimen HDL Cholesterol 47 >39 mg/dL [facility] LDL Cholesterol Calculated 92 <100 mg/dL [facility] Comment:Desirable: <100 mg/d l Non HDL Cholesterol 113 <130 mg/dL [facility] Blood specimen (specimen) 07/23/2015 9:07 AM [facility] 07/23/2015 9:08 AM [facility] Camacho Carpenter MD LAB - BLOOD ORDERABL ES [facility] [address] [place] [address] from Last 3 Months or Most Recently Relevant to Health Maintenance Care Teams Lei Maker Relationship Specialty Start Date End Date No Ref-Primary, Physician PCP - General 01/21/23 Mary Gupta, RN Specialty Grocery Checker Hematology & Oncology 12/31/21 Nasim Holcomb PsyD [address] [place] [address] Psychologist PSYCHOLOGIST CLINICAL 12/16/22 Nasim Holcomb PsyD [address] [place] [address] Assigned Behavioral Health Provider 01/03/23 Oleg Fleming PA [address] [place], [place] 12[address] Assigned Cancer Care Provider 11/12/23
--- OUTSIDE RECORDS SUMMARY | 2024-03-23 13:43 | XMS_ITS | Referral Summary ---
Author Organization [place] Address [address] [place] [address] Care Team Providers Care Public Health Sanitarian Technician Name Role Phone Mary Gupta RN Unavailable Nasim Holcomb PsyD Unavailable [phone] Nasim Holcomb PsyD Unavailable [phone] No Ref-Primary, Physician Primary Care Provider Oleg Fleming Unavailable [phone] Allergies Active Allergy Reactions Criticality Noted Date [...] Comments Blood Pressure 125/85 08/28/2023 1:52 PM COOLER WORKER Pulse 80 08/28/2023 1:52 PM COOLER WORKER Temperature 36.3 ??C (97.4 ??F) 08/28/2023 1:52 PM CS T Respiratory Rate 12 08/28/2023 1:52 PM COOLER WORKER Oxygen Saturation 98% 08/28/2023 1:52 PM COOLER WORKER Inhaled Oxygen Concentration - - Weight 85.1 kg (187 lb 11.2 oz) 08/28/2023 1:52 PM COOLER WORKER Height 176.5 cm (5' 9.49) 08/28/2023 1:52 PM CS T Body Mass Index 27.33 08/28/2023 1:52 PM COOLER WORKER Plan of Treatment Not on file Procedures Procedure Name Priority Date/Time Associated Diagnosis Comments COMPREHENSIVE METABOLIC PANEL Routine 08/28/2023 1:48 PM COOLER WORKER Classical Hodgkin lymphoma (H) LIPID REFLEX TO DIRECT LDL PANEL Routine 07/23/2015 9:07 AM COOLER WORKER CARDIOVASCULAR SCREENING; LDL GOAL LESS THAN 160 from Last 3 Months or Most Recently Relevant to Health Maintenance Results * (ABNORMAL) Comprehensive metabolic panel (08/28/2023 1:48 PM COOLER WORKER) [facility] Sodium 140 135 - 145 mmol/L 08/28/2023 2:11 PM [facility] Comment:Reference intervals for this test were updated on 03/17/2023 to more accurately reflect our healthy population. There may be differences in the flagging of prior results with similar values performed with this method. Interpretation of those prior results can be made in the context of the updated reference intervals. Potassium 4.1 3.4 - 5.3 mmol/L 08/28/2023 2:11 PM [facility] Carbon Dioxide (CO2) 28 22 - 29 mmol/L 08/28/2023 2:11 PM [facility] Anion Gap 10 7 - 15 mmol/L 08/28/2023 2:11 PM [facility] Urea Nitrogen 8.5 6.0 - 20.0 mg/dL 08/28/2023 2:11 PM [facility] Creatinine 0.97 0.67 - 1.17 mg/dL 08/28/2023 2:11 PM [facility] GFR Estimate >90 >60 mL/min/1. 73m2 08/28/2023 2:11 PM [facility] Calcium 9.2 8.6 - 10.0 mg/dL 08/28/2023 2:11 PM [facility] Chloride 102 98 - 107 mmol/L 08/28/2023 2:11 PM [facility] Glucose 109(H) 70 - 99 mg/dL 08/28/2023 2:11 PM [facility] Alkaline Phosphatase 85 40 - 150 U/L 08/28/2023 2:11 PM [facility] Comment:Reference intervals for this test were updated on 05/05/2023 to more accurately reflect our healthy population. There may be differences in the flagging of prior results with similar values performed with this method. Interpretation of those prior results can be made in the context of the updated reference intervals. AST 31 0 - 45 U/L 08/28/2023 2:11 PM [facility] Comment:Reference intervals for this test were updated on 12/01/2022 to more accurately reflect our healthy population. There may be differences in the flagging of prior results with similar values performed with this method. Interpretation of those prior results can be made in the context of the updated reference intervals. ALT 43 0 - 70 U/L 08/28/2023 2:11 PM [facility] Comment:Reference intervals for this test were updated on 12/01/2022 to more accurately reflect our healthy population. There may be differences in the flagging of prior results with similar values performed with this method. Interpretation of those prior results can be made in the context of the updated reference intervals. Protein Total 7.5 6.4 - 8.3 g/dL 08/28/2023 2:11 PM [facility] Albumin 4.6 3.5 - 5.2 g/dL 08/28/2023 2:11 PM [facility] Bilirubin Total 0.3 <=1.2 mg/dL 08/28/2023 2:11 PM [facility] Blood STRUCTURE OF LEFT UPPER LIMB / Unknown Venipuncture / Unknown 08/28/2023 1:48 PM COOLER WORKER 08/28/2023 1:52 PM COOLER WORKER Yoana Moss DO LAB - BLOOD ORDERABL ES [facility] Acute Care Lab [address] Lab (1st floor, no room number) [place] [phone], [facility] [phone] * LIPID REFLEX TO DIRECT LDL PANEL (07/23/2015 9:07 AM COOLER WORKER) Cholesterol 160 <200 mg/dL [facility] Triglycerides 103 <150 mg/dL [facility] Comment:Fasting specimen HDL Cholesterol 47 >39 mg/dL [facility] LDL Cholesterol Calculated 92 <100 mg/dL [facility] Comment:Desirable: <100 mg/d l Non HDL Cholesterol 113 <130 mg/dL [facility] Blood specimen (specimen) 07/23/2015 9:07 AM COOLER WORKER 07/23/2015 9:08 AM COOLER WORKER Camacho Carpenter MD LAB - BLOOD ORDERABL ES [facility] [address] [place] [address] from Last 3 Months or Most Recently Relevant to Health Maintenance Care Teams Public Health Sanitarian Technician Relationship Specialty Start Date End Date No Ref-Primary, Physician PCP - General 01/21/23 Mary Gupta, RN Specialty Driver Medic Hematology & Oncology 12/31/21 Nasim Holcomb PsyD [address] [place] [address] [phone] Psychologist PSYCHOLOGIST CLINICAL 12/16/22 Nasim Holcomb PsyD [address] [place] [address] [phone] Assigned Behavioral Health Provider 01/03/23 Oleg Fleming PA [address] [place] [address] [id number] Assigned Cancer Care Provider 11/12/23
--- OUTSIDE RECORDS SUMMARY | 2024-03-23 13:43 | XMS_ITS ---
Author Organization [place] Address [address] [place] [address] Care Team Providers Care Technologist Infectious Disease Name Role Phone Mary Gupta RN Unavailable [phone] Nasim Holcomb PsyD Unavailable [phone] Nasim Holcomb PsyD Unavailable [phone] No Ref-Primary, Physician Primary Care Provider Oleg Fleming Unavailable [phone] Active Problems Problem Noted Date Diagnosed Date [...] treatments are documented for this patient in [facility]. Treatments may have been administered in another system. 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
--- OUTSIDE RECORDS SUMMARY | 2024-03-23 13:43 | XMS_ITS | Encounter Summary ---
Author Organization [place] Address [address] [place] [address] Care Team Providers Care Quantity Surveyor Name Role Phone Camacho Carpenter MD Primary Care Provider [phone] Mary Gupta RN Unavailable [phone] Yoana Moss DO Unavailable [phone] Tereza Mallory MD Unavailable [phone] [facility]- Primary Care Provider Nasim Holcomb PsZari Unavailable [phone] Oleg Burch Unavailable Unavailable Nasim HolcombyD Unavailable [phone] No Ref-Primary, Physician Primary Care Provider Oleg Fleming Unavailable [phone] Yoana Moss DO Unavailable [phone] Oleg Fleming Unavailable [phone] Reason for Visit * Reason Onset Date Comments rash follow up 04/03/2022 Encounter Details Date Type Department Care Team (Late st Contact Info) Description 04/03/2022 [facility] Advice [facility] [address] [address] [facility] [place] [phone] [place] [address] [place], [place] 497[address] rash follow up Social History Tobacco Use [...] Pt sent an image attached to his [employer] message. Per viewing the picture, not an [...] develops any other symptoms. Pt voiced understanding. Medical Bill Processor will route message to Dr. Moss if she has any concerns or further advise/suggestions. Ivanna Correa RN, BSN Triage Nurse Advisor [facility] [phone] * Telephone Encounter - Ivanna Correa RN - 04/03/2022 2:01 PM CDT Called patient as a follow up to his [employer] message he sent today regarding a rash. [place] and requested to call us back. Told patient he can call clinic when he is able and ask to be transferred to the triage line so we can help him. Pt voiced understanding. Awaiting a return call. 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 [employer] documented as of this encounter Care Teams Quantity Surveyor Relationship Specialty [place] [address] [place] [address] PCP - General Family Practice 12/11/15 08/27/22 [facility]- [address] [place] [address] PCP - General 08/28/22 01/20/23 No Ref-Primary, Physician PCP - General 01/21/23 Mary Gupta RN Specialty Corrosion Prevention Metal Sprayer Hematology & Oncology 12/31/21 [place] [address] [place] [address] Assigned Cancer Care Provider 01/04/22 07/15/23 Tereza Mallory MD [address] [place] [address] 265735 Assigned Infectious Disease Provider 05/31/22 12/12/23 Nasim Holcomb PsyD [address] [place] [address] [phone] Psychologist PSYCHOLOGIST CLINICAL 12/16/22 Oleg Burch LSW Specialty Corrosion Prevention Metal Sprayer 12/18/22 02/03/23 Nasim Holcomb PsyD [address] [place] [address] Assigned Behavioral Health Provider 01/03/23 Oleg Fleming PA [address] [place] [address] [phone] Assigned Cancer Care Provider 07/16/23 07/23/23 [place] [address] [place] [address] Assigned Cancer Care Provider 2/2/24 5/22/24 Oleg Fleming PA [address] [place] [address] Assigned Cancer Care Provider 11/12/23 documented as of this encounter
--- OUTSIDE RECORDS SUMMARY | 2024-03-23 13:43 | XMS_ITS | Encounter Summary ---
Author Organization [place] Address [address] [place] [address] Care Team Providers Care Rn Float Name Role Phone Camacho Carpenter MD Primary Care Provider [phone] Mary Gupta RN Unavailable [phone] Yoana Moss DO Unavailable [phone] Tereza Mallory MD Unavailable [phone] [facility]- Primary Care Provider Nasim Holcomb PsyD Unavailable Oleg Burch Unavailable Unavailable Nasim Holcomb PsyD Unavailable No Ref-Primary, Physician Primary Care Provider Oleg Fleming Unavailable [phone] Yoana Moss DO Unavailable [phone] Oleg Fleming Unavailable [phone] Encounter Details Date Type Department Care Team (Late st Contact Info) Description 03/19/2022 [facility] Medical Advice [facility] [address] [place] [address] [facility] [place] [phone] [place] [address] [place] [address] Social History Tobacco Use Types [...] Out COVID-19 05/26/2022 05/26/2022 05/26/2022 11:56 AM COMPUTER TESTER documented as of this encounter Care Teams Rn Float Relationship Specialty [place] [address] [place] [address] PCP - General Family Practice 12/11/15 08/27/22 [facility]- [address] [place] [address] PCP - General 08/28/22 01/20/23 No Ref-Primary, Physician PCP - General 01/21/23 Mary Gupta, RN Specialty Instructor Kindergarten Hematology & Oncology 12/31/21 [place] [address] [place] [address] Assigned Cancer Care Provider 01/04/22 07/15/23 Tereza Mallory MD [address] [place] [address] [phone] Assigned Infectious Disease Provider 05/31/22 12/12/23 Nasim Holcomb PsyD [address] [place] [address] [phone] Psychologist PSYCHOLOGIST CLINICAL 12/16/22 Oleg Burch LSW Specialty Instructor Kindergarten 12/18/22 02/03/23 Nasim Holcomb PsyD [address] [place] [address] [phone] Assigned Behavioral Health Provider 01/03/23 Oleg Fleming PA [address] [place] [address] 166805 Assigned Cancer Care Provider 07/16/23 07/23/23 [place] [address] [place] [address] Assigned Cancer Care Provider 07/24/23 11/11/23 Oleg Fleming PA [address] [place] [address] [phone] Assigned Cancer Care Provider 11/12/23 documented as of this encounter
--- OUTSIDE RECORDS SUMMARY | 2024-03-23 13:43 | XMS_ITS | Encounter Summary ---
Author Organization [facility] Address [address] [place] [address] 09[address] Care Team Providers Care Pipelayer Name Role Phone Camacho Carpenter MD Primary Care Provider [phone] Mary Gupta RN Unavailable [phone] Yoana Moss DO Unavailable [phone] Tereza Mallory MD Unavailable [phone] [facility]- Primary Care Provider Nasim Holcomb PsyD Unavailable [phone] Oleg Burch Unavailable Unavailable Nasim Holcomb PsyD Unavailable [phone] No Ref-Primary, Physician Primary Care Provider Oleg Fleming Unavailable [phone] Yoana Moss DO Unavailable [phone] Oleg Fleming Unavailable [phone] Encounter Details Date Type Department Care Team (Late st Contact Info) Description 06/06/2022 MyC Medical Advice [facility] [place] [address] [place] [address] [address] [facility] [place] [phone] Mary Gupta, RN Social History Tobacco Use [...] Coronavirus/COVID-19? No / Unsure 06/04/2022 12:56 PM CHARRER documented as of this encounter Plan of Treatment Not on file documented as of this encounter Visit Diagnoses Not on filedocumented in this encounter Care Teams Pipelayer Relationship Specialty [place] [address] [place] [address] PCP - General Family Practice 12/11/15 08/27/22 [facility]- [address], [place] [address] PCP - General 08/28/22 01/20/23 No Ref-Primary, Physician PCP - General 01/21/23 Mary Gupta, MARIBETH Specialty Cutting Department Supervisor Hematology & Oncology 12/31/21 [place] [address] [place] [address] Assigned Cancer Care Provider 01/04/22 07/15/23 Tereza Mallory MD [address] [place] [address] 089615 Assigned Infectious Disease Provider 05/31/22 12/12/23 Nasim Holcomb PsyD [address] [place] [address] 167855 Psychologist PSYCHOLOGIST CLINICAL 12/16/22 Oleg Burch LSW Specialty Cutting Department Supervisor 12/18/22 02/03/23 Nasim Holcomb PsyD [address] [place] [address] 806855 Assigned Behavioral Health Provider 01/03/23 Oleg Fleming PA [address] [place] [address] 805985 Assigned Cancer Care Provider 07/16/23 07/23/23 [place] [address] 200 [place] [address] Assigned Cancer Care Provider 07/24/23 11/11/23 Oleg Fleming PA [address] [place] [address] Assigned Cancer Care Provider 11/12/23 documented as of this encounter
--- OUTSIDE RECORDS SUMMARY | 2024-03-23 13:44 | XMS_ITS | Encounter Summary ---
Author Organization [facility] Address [address] [place] [address] Care Team Providers Care Furniture Restorer Name Role Phone Camacho Carpenter MD Primary Care Provider [phone] Mary Gupta RN Unavailable [phone] Yoana Moss DO Unavailable [phone] Tereza Mallory MD Unavailable [phone] [facility]- Primary Care Provider Nasim Holcomb PsyD Unavailable Oleg Burch Unavailable Unavailable Nasim Holcomb PsyD Unavailable No Ref-Primary, Physician Primary Care Provider Oleg Fleming Unavailable [phone] Yoana Moss DO Unavailable [phone] Oleg Fleming Unavailable [phone] Encounter Details Date Type Department Care Team (Late st Contact Info) Description 02/03/2022 [facility] Medical Advice [facility] [place] [address] [place] [address] [address] 200 [facility] [place] [phone] Diamond Hernandez PA-C [address] [facility] [address] [place] [address] Social History Tobacco Use Types [...] Out COVID-19 05/26/2022 05/26/2022 05/26/2022 11:56 AM 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 documented as of this encounter Care Teams Furniture Restorer Relationship Specialty [place] [address] [place] [address] PCP - General Family Practice 12/11/15 08/27/22 [facility]- [address] [place] [address] PCP - General 08/28/22 01/20/23 No Ref-Primary, Physician PCP - General 01/21/23 Mary Gupta, RN Specialty Software Licensing Analyst Hematology & Oncology 12/31/21 [place] [address] 200 [place] [address] Assigned Cancer Care Provider 01/04/22 07/15/23 Tereza Mallory MD [address] [place] [address] [id number] Assigned Infectious Disease Provider 05/31/22 12/12/23 Nasim Holcomb PsyD [address] [place] [address] 691815 Psychologist PSYCHOLOGIST CLINICAL 12/16/22 Oleg Burch LSW Specialty Software Licensing Analyst 12/18/22 02/03/23 Nasim Holcomb PsyD [address] [place] [address] 370195 Assigned Behavioral Health Provider 01/03/23 Oleg Fleming PA [address] [place] [address] 478475 Assigned Cancer Care Provider 07/16/23 07/23/23 [place] [address] [place] [address] Assigned Cancer Care Provider 07/24/23 11/11/23 Oleg Fleming PA 9 [place], [place] 108065 Assigned Cancer Care Provider 11/12/23 documented as of this encounter
--- OUTSIDE RECORDS SUMMARY | 2024-03-23 13:44 | XMS_ITS | Clinical Summary ---
Author Organization [facility] Address [address] [place] [address] Care Team Providers Care Level Vial Marker Name Role Phone Francisco Hopkins Primary Care [...] PCV) 1985 COVID-19 Vaccine (3 - season) 2024, 09/23/2020 Influenza Vaccine (#1) 2024 04/23/2020 Adult Tetanus Booster 08/27/2031 08/26/2021, 010 RSV Vaccines (1 - 1-dose 75+ series) 2054 Hepatitis C Screening Completed 12/15/2021 Medical Devices Implanted Type Area Infrastructure Administrator Device Identifier Shelf Expiration Date Model / Serial / Lot Powerport Clear Ashu 6fr - [id number] Implanted:Qty: 1 on 12/19/2021 by Hasmukh Ceja APRN, RN DISEASE MANAGEMENT at [facility] Port Right: Chest [facility] [id number] 10/19/2022 [id number] / / [id number] Procedures Procedure Name Priority Date/Time Associated Diagnosis Comments HEP A/B/C PANEL Routine 12/15/2021 1:59 PM CDT from Last 3 Months or Most Recently Relevant to Health Maintenance Results * Hepatitis A/B/C Panel (12/15/2021 1:59 PM CDT) HEP BC IGM MAXIMO Non-React fritz Non-React fritz ATELLICA ANALYZER 12/15/2021 5:44 PM CDT [facility] HEP A IGM MAXIMO Non-React fritz Non-React fritz ATELLICA ANALYZER 12/15/2021 5:44 PM CDT [facility] HEP BS ANTIGEN Non-React fritz Non-React fritz ATELLICA ANALYZER 12/15/2021 5:44 PM CDT [facility] Hepatitis C Antibody Non-React fritz Non-React fritz ATELLICA ANALYZER 12/15/2021 5:44 PM CDT [facility] Blood 12/15/2021 1:59 PM CDT 12/15/2021 2:22 PM CDT Kenya Birch MD IMMUNOLOGY ORDERABLE [facility] [address] [place] [address] from Last 3 Months or Most Recently Relevant to Health Maintenance Advance Directives For more information, please contact: [phone] * Full Code (Latest Code Status on File) Date Activated Date Inactivated Comments 12/14/2021 6:12 PM 12/20/2021 12:47 AM Question Answer Comments How was code status determined? Patient Care Teams Level Vial Marker Relationship Specialty Start Date End Date Francisco Hopkins PCP - General 12/14/21
--- OUTSIDE RECORDS SUMMARY | 2024-03-23 13:44 | XMS_ITS | Encounter Summary ---
Author Organization [facility] Address [address] [place] [address] 12024 Care Team Providers Care Clinical Athletic Instructor Name Role Phone Camacho Carpenter MD Primary Care Provider [phone] Mary Gupta RN Unavailable [phone] Yoana Moss DO Unavailable [phone] Tereza Mallory MD Unavailable [phone] [facility]- Primary Care Provider Nasim Holcomb PsyD Unavailable [phone] Oleg Burch Unavailable Unavailable Nasim HolcombyD Unavailable [phone] No Ref-Primary, Physician Primary Care Provider Oleg Fleming Unavailable [phone] Yoana Moss DO Unavailable [phone] Oleg Fleming Unavailable [phone] Encounter Details Date Type Department Care Team (Late st Contact Info) Description 03/11/2022 MyC Medical Advice [facility] [address] [place] [address] 200 [facility] [place] [phone] [place] [address] 200 [place] [address] Classical Hodgkin lymphoma (H) (Primary Dx); Chemotherapy-induced neutropenia (H); Nausea Social History Tobacco Use Types Packs/Day [...] Classical Hodgkin lymphoma (H)- Primary Chemotherapy-induced neutropenia (H) Drug induced neutropenia Nausea Nausea alone documented in this encounter Additional Health Concerns Infection Onset Date Last Indicated Resolved Time Rule Out COVID-19 05/26/2022 05/26/2022 05/26/2022 11:56 AM RISK AND INSURANCE MANAGER documented as of this encounter Care Teams Clinical Athletic Instructor Relationship Specialty [place] [address] [place] [address] PCP - General Family Practice 12/11/15 08/27/22 [facility]- [address] [place] [address] PCP - General 08/28/22 01/20/23 No Ref-Primary, Physician PCP - General 01/21/23 Mary Gupta, MARIBETH Specialty Behavioral Science Chair Hematology & Oncology 12/31/21 [place] [address] VALENZUELA [address] [place] [address] Assigned Cancer Care Provider 01/04/22 07/15/23 Tereza Mallory MD [address] [place] [address] Assigned Infectious Disease Provider 05/31/22 12/12/23 Nasim Holcomb PsyD [address] [place] [address] Psychologist PSYCHOLOGIST CLINICAL 12/16/22 Oleg Burch LSW Specialty Behavioral Science Chair 12/18/22 02/03/23 Nasim Holcomb PsyD [address] [place] [address] 638[address] Assigned Behavioral Health Provider 01/03/23 Oleg Fleming PA [address] [place] [address] Assigned Cancer Care Provider 07/16/23 07/23/23 [place] [address] VALENZUELA [address] [place] [address] Assigned Cancer Care Provider 07/24/23 11/11/23 Oleg Fleming PA [address] [place] [address] Assigned Cancer Care Provider 11/12/23 documented as of this encounter
--- OUTSIDE RECORDS SUMMARY | 2024-03-23 13:44 | XMS_ITS | Referral Summary ---
Author Organization [facility] Address [address] [place] [address] Care Team Providers Care Service Dispatcher Name Role Phone Francisco Hopkins Primary Care [...] on file Medical Devices Implanted Type Area Attendant Honor Bar Device Identifier Shelf Expiration Date Model / Serial / Lot Powerport Jamil [place] 6fr - [id number] Implanted:Qty: 1 on 12/19/2021 by Hasmukh Ceja APRN, MANAGER CREDIT RISK at [facility] Port Right: Chest [facility] [id number] 10/19/2022 [id number] / / [id number] Procedures Procedure Name Priority Date/Time Associated Diagnosis Comments HEP A/B/C PANEL Routine 12/15/2021 1:59 PM CDT from Last 3 Months or Most Recently Relevant to Health Maintenance Results * Hepatitis A/B/C Panel (12/15/2021 1:59 PM CDT) HEP BC IGM MAXIMO Non-React fritz Non-React fritz ATELLICA ANALYZER 12/15/2021 5:44 PM CDT [facility] HEP A IGM MAXIMO Non-React fritz Non-React fritz ATELLICA ANALYZER 12/15/2021 5:44 PM CDT [facility] HEP BS ANTIGEN Non-React fritz Non-React fritz ATELLICA ANALYZER 12/15/2021 5:44 PM CDT [facility] Hepatitis C Antibody Non-React fritz Non-React fritz ATELLICA ANALYZER 12/15/2021 5:44 PM CDT [facility] Blood 12/15/2021 1:59 PM CDT 12/15/2021 2:22 PM CDT Kenya Birch MD [facility] ORDERABLE [facility] [address] [place] [address] from Last 3 Months or Most Recently Relevant to Health Maintenance Advance Directives For more information, please contact: [phone] * Full Code (Latest Code Status on File) Date Activated Date Inactivated Comments 12/14/2021 6:12 PM 12/20/2021 12:47 AM Question Answer Comments How was code status determined? Patient Care Teams Service Dispatcher Relationship Specialty Start Date End Date Francisco Hopkins PCP - General 12/14/21
--- OUTSIDE RECORDS SUMMARY | 2024-03-23 13:44 | XMS_ITS | Encounter Summary ---
Author Organization [facility] Address [address] [place] [address] Care Team Providers Care Epic Ambulatory Analysts Name Role Phone Liu Gay MD Primary Car e Provider Camacho Carpenter MD Primary Care Provider [phone] Camacho Carpenter MD Unavailable [phone] Camacho Carpenter MD Unavailable [phone] Mary Gupta RN Unavailable [phone] Yoana Moss DO Unavailable [phone] Tereza Mallory MD Unavailable [phone] [facility]- Primary Care Provider Nasim Holcomb PsyD Unavailable [phone] Oleg Burch Unavailable Unavailable Nasim Holcomb PsyD Unavailable [phone] No Ref-Primary, Physician Primary Care Provider Oleg Fleming Unavailable [phone] Yoana Moss DO Unavailable [phone] Oleg Fleming Unavailable [phone] Reason for Visit * Reason Onset Date Comments Medication Question 02/14/2010 Questions ab out Prednisone Encounter Details Date Type Department Care Team (Late st Contact Info) Description 02/14/2010 MyC Medical Advice [facility] [address] [place] [address] Liu Gay MD [employer] [address] [place] [address] Medication Question (Questions about Predn... Social History [...] Out COVID-19 05/26/2022 05/26/2022 05/26/2022 11:56 AM MYSQL DATABASE DEVELOPER documented as of this encounter Care Teams Epic Ambulatory Analysts Relationship Specialty Start Date End Date Liu Gay MD [employer] [address] [place] [address] PCP - General 09/24/02 04/01/15 [place] [address] [place] [address] PCP - General Family Practice 12/11/15 08/27/22 [place] [address] [place] [address] PCP - Assigned PCP 07/29/15 07/24/18 [facility]- [address] [place] [address] PCP - General 08/28/22 01/20/23 No Ref-Primary, Physician PCP - General 01/21/23 [place] [address] [place], [place] 52354124 Assigned PCP 07/29/15 07/24/18 Mary Gupta, MARIBETH Specialty Level Vial Setter Hematology & Oncology 12/31/21 [place] [address] VALENZUELA [address] [place] [address] Assigned Cancer Care Provider 01/04/22 07/15/23 Tereza Mallory MD [address] [place] [address] Assigned Infectious Disease Provider 05/31/22 12/12/23 Nasim Holcomb PsyD [address] [place] [address] Psychologist PSYCHOLOGIST CLINICAL 12/16/22 Oleg Burch LSW Specialty Level Vial Setter 12/18/22 02/03/23 Nasim Holcomb PsyD [address] [place] [address] Assigned Behavioral Health Provider 01/03/23 Oleg Fleming PA [address] [place] [address] 713615 Assigned Cancer Care Provider 07/16/23 07/23/23 [place] [address] [place] [address] Assigned Cancer Care Provider 07/24/23 11/11/23 Oleg Fleming PA 9 [place] [address] Assigned Cancer Care Provider 11/12/23 documented as of this encounter
--- OUTSIDE RECORDS SUMMARY | 2024-03-23 13:44 | XMS_ITS | Encounter Summary ---
Author Organization [facility] Address [address] [place] [address] Care Team Providers Care Bull Bucker Name Role Phone Liu Gay MD Primary Car e Provider Camacho Carpenter MD Primary Care Provider [phone] Camacho Carpenter MD Unavailable [phone] Camacho Carpenter MD Unavailable [phone] Mary Gupta RN Unavailable [phone] Yoana Moss DO Unavailable [phone] Tereza Mallory MD Unavailable [phone] [facility]- Primary Care Provider Nasim Holcomb PsyD Unavailable [phone] Oleg Burch Unavailable Unavailable Nasim Holcomb PsyD Unavailable [phone] No Ref-Primary, Physician Primary Care Provider Oleg Fleming Unavailable [phone] Yoana Moss DO Unavailable [phone] Oleg Fleming Unavailable [phone] Encounter Details Date Type Department Care Team (Late st Contact Info) Description 07/09/2010 [facility] [address] [address] Liu Gay MD [employer] [facility] [address] [place] [address] Social History Tobacco Use Types Packs/Day Years [...] - 08/26/2010 3:41 PM CST Mailed 08/05/10 OL JANITOR documented in this encounter Plan of Treatment Not on file documented as of this encounter Visit Diagnoses Not on filedocumented in this encounter Additional Health Concerns Infection Onset Date Last Indicated Resolved Time Rule Out COVID-19 05/26/2022 05/26/2022 05/26/2022 11:56 AM SCHOOL JANITOR documented as of this encounter Care Teams Bull Bucker Relationship Specialty Start Date End Date Liu Gay MD [employer] [address] [place] [address] PCP - General 09/24/02 04/01/15 [place] [address] [place] [address] PCP - General Family Practice 12/11/15 08/27/22 [place] [address] [place] [address] PCP - Assigned PCP 07/29/15 07/24/18 [facility]- [address] [place] [address] PCP - General 08/28/22 01/20/23 No Ref-Primary, Physician PCP - General 01/21/23 [place] [address] [place] [address] Assigned PCP 07/29/15 07/24/18 Mary Gupta, MARIBETH Specialty Manager Of Health Hematology & Oncology 12/31/21 [place] [address] [place] [address] Assigned Cancer Care Provider 01/04/22 07/15/23 Tereza Mallory MD [address] [place] [address] Assigned Infectious Disease Provider 05/31/22 12/12/23 Nasim Holcomb PsyD [address] [place] [address] Psychologist PSYCHOLOGIST CLINICAL 12/16/22 Oleg Burch LSW Specialty Manager Of Health 12/18/22 02/03/23 Nasim Holcomb PsyD [address] [place] [address] 28[address] Assigned Behavioral Health Provider 01/03/23 Oleg Fleming PA [address] [place] [address] Assigned Cancer Care Provider 07/16/23 07/23/23 [place] [address] VALENZUELA [address] [place] [address] Assigned Cancer Care Provider 07/24/23 11/11/23 Oleg Fleming PA [address] [place] [address] Assigned Cancer Care Provider 11/12/23 documented as of this encounter
--- OUTSIDE RECORDS SUMMARY | 2024-03-23 13:44 | XMS_ITS | Encounter Summary ---
Author Organization [facility] Address [address] [place] [address] Care Team Providers Care Operator Assistant I Cementing Name Role Phone Liu Gay MD Primary Car e Provider Camacho Carpenter MD Primary Care Provider [phone] Camacho Carpenter MD Unavailable Camacho Carpenter MD Unavailable [phone] Mary Gupta RN Unavailable [phone] Yoana Moss DO Unavailable [phone] Tereza Mallory MD Unavailable [phone] [facility]- Primary Care Provider Nasim Holcomb PsyD Unavailable [phone] Oleg Burch Unavailable Unavailable Nasim Holcomb PsyD Unavailable [phone] No Ref-Primary, Physician Primary Care Provider Oleg Fleming Unavailable [phone] Yoana Moss DO Unavailable [phone] Oleg Fleming Unavailable [phone] Encounter Details Date Type Department Care Team (Late st Contact Info) Description 06/26/2010 [facility] [address] [phone] Liu Gay MD [employer] [address] [place] [address] Social History Tobacco Use Types Packs/Day Years [...] Out COVID-19 05/26/2022 05/26/2022 05/26/2022 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 documented as of this encounter Care Teams Operator Assistant I Cementing Relationship Specialty Start Date End Date Liu Gay MD [employer] [facility] [address] [place] [address] PCP - General 09/24/02 04/01/15 [place] [address] [place] [address] PCP - General Family Practice 12/11/15 08/27/22 [place] [address] [place] [address] PCP - Assigned PCP 07/29/15 07/24/18 [facility]- [address], [place] 5333244 PCP - General 08/28/22 01/20/23 No Ref-Primary, Physician PCP - General 01/21/23 [place] [address] [place] [address] Assigned PCP 07/29/15 07/24/18 Mary Gupta, RN Specialty Beaming Inspector Hematology & Oncology 12/31/21 [place] [address] VALENZUELA [address] [place] [address] Assigned Cancer Care Provider 01/04/22 07/15/23 Tereza Mallory MD [address] [place] [address] 724105 Assigned Infectious Disease Provider 05/31/22 12/12/23 Nasim Holcomb PsyD [address] [place] [address] Psychologist PSYCHOLOGIST CLINICAL 12/16/22 Oleg Burch LSW Specialty Beaming Inspector 12/18/22 02/03/23 Nasim Holcomb PsyD [address] [place] [address] 60060 Assigned Behavioral Health Provider 01/03/23 Oleg Fleming PA [address] [place] [address] 52553 Assigned Cancer Care Provider 07/16/23 07/23/23 [place] [address] VALENZUELA [address] [place] [address] 68[address] Assigned Cancer Care Provider 07/24/23 11/11/23 Oleg Fleming PA [address] [place] [address] Assigned Cancer Care Provider 11/12/23 documented as of this encounter
--- OUTSIDE RECORDS SUMMARY | 2024-03-23 13:44 | XMS_ITS | Encounter Summary ---
Author Organization [facility] Address [address] [place] [address]. [place] [address] Care Team Providers Care Electronic Commerce Specialist Name Role Phone Camacho Carpenter MD Primary Care Provider [phone] Mary Gupat RN Unavailable [phone] Yoana Moss DO Unavailable [phone] Tereza Mallory MD Unavailable [phone] [facility]- Primary Care Provider Nasim Holcomb PsyD Unavailable Oleg Burch Unavailable Unavailable Nasim Holcomb PsyD Unavailable [phone] No Ref-Primary, Physician Primary Care Provider Oleg Fleming Unavailable [phone] Yoana Moss DO Unavailable [phone] Oleg Fleming Unavailable [phone] Encounter Details Date Type Department Care Team (Late st Contact Info) Description 01/20/2022 [facility] [place] [phone] [place] [address] [address] [facility] [place] [address] Oleg Fleming PA [address] [place] [address] Social History Tobacco Use Types [...] Out COVID-19 05/26/2022 05/26/2022 05/26/2022 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 documented as of this encounter Care Teams Electronic Commerce Specialist Relationship Specialty [place] [address] [place] [address] PCP - General Family Practice 12/11/15 08/27/22 [facility]- [address] [place] [address] PCP - General 08/28/22 01/20/23 No Ref-Primary, Physician PCP - General 01/21/23 Mary Gupta, RN Specialty Apple Thinner Hematology & Oncology 12/31/21 [place] [address] [place] [address] Assigned Cancer Care Provider 01/04/22 07/15/23 Tereza Mallory MD [address] [place] [address] 888345 Assigned Infectious Disease Provider 05/31/22 12/12/23 Nasim Holcomb PsyD [address] [place] [address] 510605 Psychologist PSYCHOLOGIST CLINICAL 12/16/22 Oleg Burch LSW Specialty Apple Thinner 12/18/22 02/03/23 Nasim Holcomb PsyD [address] [place] [address] 280695 Assigned Behavioral Health Provider 01/03/23 Oleg Fleming PA [address] [place] [address] 990935 Assigned Cancer Care Provider 07/16/23 07/23/23 [place] [address] [place] [address] Assigned Cancer Care Provider 07/24/23 11/11/23 Oleg Fleming PA [address] [place], [place] 085415 Assigned Cancer Care Provider 11/12/23 documented as of this encounter
--- OUTSIDE RECORDS SUMMARY | 2024-03-23 13:44 | XMS_ITS ---
Author Organization [facility] Address [address] [place] [address] Care Team Providers Care Manager Environmental Affairs Name Role Phone Francisco Hopkins Primary Care [...] IV infusiondacarbazine ( DTIC ) IV infusionDOXOrubicin (Adriamycin)vinBLASti ne (VELBAN) IV infusion Therapy Complete Rani Culver MD Treatment not started [address] 12/18/19 22 12/18/2021 bleomycin ( BLENOXANE ) IV infusiondacarbazine ( DTIC ) IV infusionDOXOrubicin (Adriamycin)vinBLASti ne (VELBAN) IV infusion Entered in Error Rani Culver MD Treatment not started Radiation Treatments * No radiation treatments are documented for this patient in [facility]. Treatments may have been administered in another system. Lifetime Dose Tracking * Chemical Lifetime Dose Automatic Entry Manual Entr y CT Radiation 362.2 mGy 362.2 mGy 0 mGy
--- OUTSIDE RECORDS SUMMARY | 2024-03-23 13:44 | XMS_ITS | Encounter Summary ---
Author Organization [facility] Address [address] [place] [address]. [place] [address] Care Team Providers Care Railroad Carman Name Role Phone Camacho Carpenter MD Primary Care Provider [phone] Mary Gupta RN Unavailable [phone] Yoana Moss DO Unavailable [phone] Tereza Mallory MD Unavailable [phone] [facility]- Primary Care Provider Nasim Holcomb PsyD Unavailable Oleg Burch Unavailable Unavailable Nasim Holcomb PsyD Unavailable [phone] No Ref-Primary, Physician Primary Care Provider Oleg Fleming Unavailable [phone] Yoana Moss DO Unavailable [phone] Oleg Fleming Unavailable [phone] Encounter Details Date Type Department Care Team (Late st Contact Info) Description 01/28/2022 [facility] [place] [id number] [place] [address] [address] [facility] [place] [place] [address] Oleg Fleming PA [address] [place] [address] Social History Tobacco Use Types [...] Out COVID-19 05/26/2022 05/26/2022 05/26/2022 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 documented as of this encounter Care Teams Railroad Carman Relationship Specialty [place] [address] [place] [address] PCP - General Family Practice 12/11/15 08/27/22 [facility]- [address] [place] [address] PCP - General 08/28/22 01/20/23 No Ref-Primary, Physician PCP - General 01/21/23 Mary Gupta, RN Specialty Front Office Manager Hematology & Oncology 12/31/21 [place] [address] [place] [address] Assigned Cancer Care Provider 01/04/22 07/15/23 Tereza Mallory MD [address] [place] [address] [id number] Assigned Infectious Disease Provider 05/31/22 12/12/23 Nasim Holcomb PsyD [address] [place] [address] 612695 Psychologist PSYCHOLOGIST CLINICAL 12/16/22 Oleg Burch LSW Specialty Front Office Manager 12/18/22 02/03/23 Nasim Holcomb PsyD [address] [place] [address] [id number] Assigned Behavioral Health Provider 01/03/23 Oleg Fleming PA [address] [place] [address] [id number] Assigned Cancer Care Provider 07/16/23 07/23/23 [place] [address] [place] [address] Assigned Cancer Care Provider 07/24/23 11/11/23 Oleg Fleming PA [address] [place], [place] [address] Assigned Cancer Care Provider 11/12/23 documented as of this encounter
--- OUTSIDE RECORDS SUMMARY | 2024-03-23 13:44 | XMS_ITS | Encounter Summary ---
Author Organization [facility] Address [address] [place] [address] Care Team Providers Care Log Roller Name Role Phone Liu Gay MD Primary Car e Provider Camacho Carpenter MD Primary Care Provider [phone] Camacho Carpenter MD Unavailable [phone] Camacho Carpenter MD Unavailable Mary Gupta RN Unavailable [phone] Yoana Moss DO Unavailable [phone] Tereza Mallory MD Unavailable [phone] [facility]- Primary Care Provider Nasim Holcomb PsyD Unavailable [phone] Oleg Burch Unavailable Unavailable Nasim Holcomb PsyD Unavailable [phone] No Ref-Primary, Physician Primary Care Provider Oleg Fleming Unavailable [phone] Yoana Moss DO Unavailable [phone] Oleg Fleming Unavailable [phone] Encounter Details Date Type Department Care Team (Late st Contact Info) Description 07/05/2010 [facility] [address] [address] Liu Gay MD [employer] [facility] [place] [address] Social History Tobacco Use Types Packs/Day Years [...] Out COVID-19 05/26/2022 05/26/2022 05/26/2022 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[employer] documented as of this encounter Care Teams Log Roller Relationship Specialty Start Date End Date Liu Gay MD [employer] [facility] [address] [place] [address] PCP - General 09/24/02 04/01/15 [place] [address] [place] [address] PCP - General Family Practice 12/11/15 08/27/22 [place] [address] [place] [address] PCP - Assigned PCP 07/29/15 07/24/18 [facility] [address] [place] [address] PCP - General 08/28/22 01/20/23 No Ref-Primary, Physician PCP - General 01/21/23 [place] [address] [place] [address] Assigned PCP 07/29/15 07/24/18 Mary Gupta, MARIBETH Specialty Teenage Babysitter Hematology & Oncology 12/31/21 [place] [address] VALENZUEL[address] [place] [address] Assigned Cancer Care Provider 01/04/22 07/15/23 Tereza Mallory MD [address] [place] [address] [phone] Assigned Infectious Disease Provider 05/31/22 12/12/23 Nasim Holcomb PsyD [address] [place] [address] Psychologist PSYCHOLOGIST CLINICAL 12/16/22 Oleg Burch LSW Specialty Teenage Babysitter 12/18/22 02/03/23 Nasim Holcomb PsyD [address] [place] [address] Assigned Behavioral Health Provider 01/03/23 Oleg Fleming PA [address] [place] [address] Assigned Cancer Care Provider 07/16/23 07/23/23 [place] [address] VALENZUELA [address] [place] [address] Assigned Cancer Care Provider 07/24/23 11/11/23 Oleg Fleming PA [address] [place] [address] Assigned Cancer Care Provider 11/12/23 documented as of this encounter
--- OUTSIDE RECORDS SUMMARY | 2024-03-23 13:44 | XMS_ITS | Encounter Summary ---
Author Organization [facility] Address [address] [place] [address] Care Team Providers Care Cleaning Attendant Name Role Phone Camacho Carpenter MD Primary Care Provider [phone] Mary Gupta RN Unavailable [phone] Yoana Moss DO Unavailable [phone] Tereza Mallory MD Unavailable [phone] [facility]- Primary Care Provider Nasim Holcomb PsyD Unavailable [phone] Oleg Burch Unavailable Unavailable Nasim Holcomb PsyD Unavailable [phone] No Ref-Primary, Physician Primary Care Provider Oleg Fleming Unavailable [phone] Yoana Moss DO Unavailable [phone] Oleg Fleming Unavailable [phone] Encounter Details Date Type Department Care Team (Late st Contact Info) Description 02/05/2022 [facility] [place] [phone] [place] [address] [address] [facility] [place] [phone] Mary Gupta, RN Social History Tobacco Use [...] Out COVID-19 05/26/2022 05/26/2022 05/26/2022 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 documented as of this encounter Care Teams Cleaning Attendant Relationship Specialty [place] [address] [place] [address] PCP - General Family Practice 12/11/15 08/27/22 [facility]- [address] [address] PCP - General 08/28/22 01/20/23 No Ref-Primary, Physician PCP - General 01/21/23 Mary Gupta RN Specialty Manager Wholesale Hematology & Oncology 12/31/21 [place] [address] [facility] [address] [place] [address] Assigned Cancer Care Provider 01/04/22 07/15/23 Tereza Mallory MD [address] [place] [address] [phone] Assigned Infectious Disease Provider 05/31/22 12/12/23 Nasim Holcomb PsyD [address] [place] [address] Psychologist PSYCHOLOGIST CLINICAL 12/16/22 Oleg Burch LSW Specialty Manager Wholesale 12/18/22 02/03/23 Nasim Holcomb PsyD [address] [place] [address] Assigned Behavioral Health Provider 01/03/23 Oleg Fleming PA [address] [place] [address] Assigned Cancer Care Provider 07/16/23 07/23/23 [place] [address] [facility] [address] [place] [address] Assigned Cancer Care Provider 07/24/23 11/11/23 Oleg Fleming PA [address] [place] [address] [phone] Assigned Cancer Care Provider 11/12/23 documented as of this encounter
== END 2024-03-22 07:38 | disposition home or self-care (01) ==
LOC: NFLDREF 03-23 13:41
PROVIDERS: PCP Family Medicine; Visit Provider Internal Medicine Hematology & Oncology
DX: C81.70 Other Hodgkin lymphoma, unspecified site (principal); E55.9 Vitamin D deficiency, unspecified
CPT/HCPCS: 80053; 82306; 83615

== ENCOUNTER 2024-07-26 09:23 | Outpatient (CLI) | payer BC, SELFPAY ==
--- NOTE | 2024-07-26 10:00 | CRLHL7_ITS ---
For Patients: As a result of the 21st Century Cures Act, medical imaging exams and procedure reports are released immediately into your electronic medical record. You may view this report before your referring provider. If you have questions, please contact your health care provider. Indication: Hodgkin lymphoma FOLLOW UP Technique: CT Chest/Abd/Pelvis W/ ISOVUE 370 Please note that all CT scans at this facility use dose modulation, iterative reconstruction, and/or weight-based dosing when appropriate to reduce radiation dose to as low as reasonably achievable. Comparison: PREV PET 12/10/23, CT 06/23/23, 02/25/23, 12/14/21 Findings: In the chest, lungs are clear without infiltrate, edema, effusion, pneumothorax or nodule. Similar mediastinal lymph nodes are present measuring up to 1.1 cm. Similar right hilar lymphoid tissue. No fracture. No destructive osseous lesion. Visualized thyroid normal. In the abdomen, mild fatty infiltration of the liver. Calcified stones in the gallbladder. Spleen is similar with chronic low-density structure with associated calcifications at the anteroinferior aspect. Adrenal glands normal. Normal kidneys. Normal pancreas. Duodenal diverticulum again noted. Stable retroperitoneal lymph nodes measuring up to 9 millimeters. No aneurysm or dissection. No portal venous thrombus. No hiatal hernia. Normal small bowel loops. In the pelvis, the bladder is normal. Prostate is similar. No bowel obstruction, free air, free fluid or abscess. No pelvic or inguinal adenopathy. Normal appendix. No abdominal wall hernia. No fracture. Impression: Stable mildly prominent mediastinal, right hilar and upper retroperitoneal lymph nodes without significant change compared to prior studies. Stable appearance of the spleen. Chronic cholelithiasis and mild diffuse hepatic steatosis. No pulmonary nodules. Please note that all CT scans at this facility use dose modulation, iterative reconstruction, and/or weight-based dosing when appropriate to reduce radiation dose to as low as reasonably achievable. Dictated by Catalino Arreola MD @ 07/26/2024 10:36:14 AM (Electronically Signed)
[2024-07-26 10:15] LABS: Basophils Absolute Auto 0.05 K/uL (0.00-0.30); Basophils Percent Auto 0.8 % (0.0-3.0); Eosinophils Absolute Auto 0.32 K/uL (0.00-0.50); Eosinophils Percent Auto 4.9 % (0.0-7.0); Hematocrit 47.3 % (37.0-53.0); Immature Granulocytes Abs Auto 0.07 K/uL (0.00-0.30); Immature Granulocytes Pct Auto 1.1 %; Lymphocytes Absolute Auto 1.89 K/uL (0.90-2.90); Lymphocytes Percent Auto 29.1 % (20-44); Mean Corpuscular HGB Conc 34 gm/dL (32-36); Mean Corpuscular Hemoglobin 30 pg (26-34); Mean Corpuscular Volume 89 fL (80-100); Monocytes Percent Auto 7.1 % (0.0-11.0); Platelet Count* 221 K/uL (140-440); RDW Coefficient of Variation % 11.8 % (11.5-15.5); Red Blood Count 5.32 m/uL (4.30-5.90); White Blood Count* 6.49 K/uL (4.50-11.00)
[2024-07-26 10:21] LABS: Slide Review Reflex No
[2024-07-26 10:32] LABS: Albumin* 4.3 g/dL (3.3-5.0)
[2024-07-26 10:33] LABS: Chloride* 98 mmol/L (96-114); Potassium* 4.6 mmol/L (3.6-5.1); Sodium* 136 mmol/L (135-149)
[2024-07-26 10:35] LABS: Anion Gap 9 mEq/L (7-15); Aspartate Amino Transferase* 22 U/L (12-35); Bilirubin Total* 0.4 mg/dL (0.1-1.5); Carbon Dioxide* 29 mmol/L (20-32); Estimated Glomerular Filt Rate 95 ml/min; Total Protein* 7.3 g/dL (6.0-8.3)
[2024-07-26 10:36] LABS: Alanine Aminotransferase* 28 U/L (4-50); Alkaline Phosphatase* 83 U/L (40-150); Blood Urea Nitrogen* 10 mg/dL (5-24); Calcium* 8.9 mg/dL (8.4-10.6); Glucose* 89 mg/dL (60-115); Lactate Dehydrogenase* 176 U/L (120-246)
[2024-07-26 11:03] LABS: Erythrocyte SedimentationRate* 16 mm/hr (2-15)
== END 2024-07-26 09:24 | disposition home or self-care (01) ==
LOC: CT 09:24
PROVIDERS: PCP Family Medicine; Visit Provider Internal Medicine Hematology & Oncology
DX: C81.70 Other Hodgkin lymphoma, unspecified site (principal); K80.20 Calculus of gallbladder without cholecystitis without obstruction; K76.0 Fatty (change of) liver, not elsewhere classified
CPT/HCPCS: 36415; 71260; 74177; 80053; 83615; 85025; 85651; Q9967

== ENCOUNTER 2024-11-03 11:12 | Outpatient (CLI) | payer BC, SELFPAY | END 2024-11-03 11:13 | disposition home or self-care (01) | LOC: LKVREF 11:12 | PROVIDERS: PCP Family Medicine; Visit Provider Family Medicine | DX: R10.9 Unspecified abdominal pain (principal); R35.0 Frequency of micturition; Z12.5 Encounter for screening for malignant neoplasm of prostate | CPT/HCPCS: 87086; G0103 ==

== ENCOUNTER 2024-11-22 12:25 | Outpatient (CLI) | payer BC, SELFPAY ==
--- NOTE | 2024-11-22 13:00 | CRLHL7_ITS ---
For Patients: As a result of the Century Cures Act, medical imaging exams and procedure reports are released immediately into your electronic medical record. You may view this report before your referring provider. If you have questions, please contact your health care provider. INDICATION: Hodgkin lymphoma. TECHNIQUE: CT chest, abdomen and pelvis acquired with 91 cc Isovue 370 IV contrast. COMPARISON: CT scan of the chest, abdomen and pelvis 07/24/2024. FINDINGS: CHEST: Lower neck and chest wall: Normal thyroid. No chest wall mass or axillary lymphadenopathy. Mediastinum and jeff: Small mediastinal and hilar lymph nodes, unchanged. Heart and vasculature: Unremarkable heart and thoracic aorta. Lungs: Clear. No pulmonary mass or consolidation. Pleura: Normal. No pleural mass, pleural effusion or pneumothorax. Bones: Unremarkable for patient???s age. No acute fracture or suspicious bone lesion. ABDOMEN AND PELVIS: Liver: Normal in size and attenuation. No suspicious masses. Gallbladder and bile ducts: Cholelithiasis. Normal caliber common bile duct. Pancreas: Unremarkable. No mass or inflammation. Spleen: Low-density lesions with partial rim calcification in the inferior spleen, unchanged. No new splenic lesion or splenomegaly. Adrenal glands: Normal in size. No nodules. Kidneys, ureters and urinary bladder: Normal kidneys. No suspicious masses, stones, or hydronephrosis. Unremarkable urinary bladder. Reproductive: Unremarkable prostate. GI tract: Unremarkable. Normal in caliber. No sign of mass or inflammation. Normal appendix. Vasculature: Unremarkable. Lymph nodes: No lymphadenopathy. Peritoneum: Unremarkable. No sign of mass or infiltration. No free air or significant free fluid. Pelvis: Unremarkable. No pelvic mass. Abdominal wall: Unremarkable. No mass or bowel containing hernia. Bones: Unremarkable for patient???s age. No acute fracture or suspicious bone lesion. IMPRESSION: 1. Stable examination. 2. No disease progression. Please note that all CT scans at this facility use dose modulation, iterative reconstruction, and/or weight-based dosing when appropriate to reduce radiation dose to as low as reasonably achievable. Dictated by Moose Magdaleno MD @ 11/24/2024 8:41:00 AM (Electronically Signed)
== END 2024-11-22 12:26 | disposition home or self-care (01) ==
LOC: CT 12:25
PROVIDERS: PCP Family Medicine; Visit Provider Internal Medicine Hematology & Oncology
DX: C81.70 Other Hodgkin lymphoma, unspecified site (principal)
CPT/HCPCS: 71260; 74177; Q9967

== ENCOUNTER 2024-11-30 10:00 | Outpatient (RCR) | payer BC, SELFPAY ==
--- NOTE | 2024-07-01 15:48 | ONC.NURNOTE ---
Addendum entered by Laly Cerda RN 07/07/24 15:45: Late entry- Patient called back Saturday 07/01 after 4 pm. RN explained to him that [facility] is stating his insurance is not active and that the clinic has the same insurance listed. Asked patient to call [facility] and give them updated insurance info. Phone number given to patient. Patient verbalized understanding. Original Note: Call received from [facility] that they are showing patient's insurance as inactive. We have the same insurance listed as [facility] has. RN called patient and LVM to call back. If patient calls he needs to call [facility] with updated insurance.
--- NOTE | 2024-07-11 14:42 | ONC.NURNOTE ---
Addendum entered by Charisma Romero RN 07/18/24 13:40: Dr. Ceballos wants to switch scan to CT, this was ordered and patient was notified. [facility] was notified to cancel the PET scan order. Addendum entered by Charisma Romero RN 07/14/24 11:15: Received denial from PET. Will work with oncologist to determine if need to change the scan, omit scanning, or do a P2P. This will be addressed on Thursday, and decision to be shared with patient and [facility]. Addendum entered by Charisma Romero RN 07/12/24 08:54: Patient called office today and states that insurance says they are missing information. Nursing called [facility], per there end insurance has until 07/14/2024 to make a determination. There are no notes stating that they are missing information but they will call and let us know if there is further information needed. Original Note: Patient was called following his cancellation of his PET scan last . 07/01/24: He called [facility] to do the medical questions and give them the new insurance. 07/06/24: [facility] left a message stating that PA was not completed yet for PET scan and cancelled appointment. 07/07/24: Patient came in for PET scan, unaware. 07/11/24: Specification Consultant called patient to let him know that his insurance is still pending and gave the following recommendations, which patient said he planned to follow through with: Call insurance company to find out the hold up and try to move things along. Call [facility] with with update and ask to schedule PET scan on 07/21/2024. Labs to be drawn closer to home per patient preference, orders are in the computer. If these are not done by PET scan, will draw same day. Appointment moved from 07/13 to 07/27 to go over results with Dr. Ceballos
[2024-08-24 09:42] LABS: Erythrocyte SedimentationRate* 7 mm/hr (2-15)
--- NOTE | 2024-08-24 12:45 | ONC.NURNOTE ---
repeat sedrate reviewed with Dr Ceballos- as normal called to patient no further action needed plan as scheduled with return in November
[2024-11-22 12:46] LABS: Hematocrit 45.7 % (37.0-53.0); Hemoglobin* 15.4 gm/dL (13.5-17.5); Immature Granulocytes Abs Auto 0.05 K/uL (0.00-0.30); Immature Granulocytes Pct Auto 0.7 %; Lymphocytes Absolute Auto 2.02 K/uL (0.90-2.90); Mean Corpuscular HGB Conc 34 gm/dL (32-36); Mean Corpuscular Hemoglobin 30 pg (26-34); Mean Corpuscular Volume 89 fL (80-100); RDW Coefficient of Variation % 12.2 % (11.5-15.5); Red Blood Count 5.14 m/uL (4.30-5.90); White Blood Count* 7.02 K/uL (4.50-11.00)
[2024-11-22 12:47] LABS: Slide Review Reflex No
[2024-11-22 12:59] LABS: Albumin* 4.7 g/dL (3.3-5.0); Chloride* 101 mmol/L (96-114); Potassium* 4.0 mmol/L (3.6-5.1); Sodium* 141 mmol/L (135-149)
[2024-11-22 13:02] LABS: Alanine Aminotransferase* 23 U/L (4-50); Alkaline Phosphatase* 72 U/L (40-150); Anion Gap 10 mEq/L (7-15); Aspartate Amino Transferase* 28 U/L (12-35); Bilirubin Total* 0.6 mg/dL (0.1-1.5); Blood Urea Nitrogen* 11 mg/dL (5-24); Calcium* 9.6 mg/dL (8.4-10.6); Carbon Dioxide* 30 mmol/L (20-32); Creatinine* 1.2 mg/dL (0.5-1.5); Est. Creatinine Clearance* 77.74; Estimated Glomerular Filt Rate 76 ml/min; Glucose* 83 mg/dL (60-115); Total Protein* 7.9 g/dL (6.0-8.3)
[2024-11-22 13:38] LABS: Erythrocyte SedimentationRate* 8 mm/hr (2-15)
== END 2025-01-22 23:59 | disposition home or self-care (01) ==
LOC: CCIC 10:00
PROVIDERS: PCP Family Medicine; Referring Provider Family Medicine; Visit Provider Internal Medicine Hematology & Oncology
DX: C81.70 Other Hodgkin lymphoma, unspecified site (principal); M54.12 Radiculopathy, cervical region; K21.9 Gastro-esophageal reflux disease without esophagitis
CPT/HCPCS: 36415; 71260; 74177; 80053; 83615; 85025; 85651; 99213; 99214; G0463; Q9967

== ENCOUNTER 2025-01-10 07:44 | Outpatient (CLI) | payer BC, SELFPAY | END 2025-01-10 07:45 | disposition home or self-care (01) | LOC: NFLDREF 01-11 04:07 | PROVIDERS: PCP Family Medicine; Referring Provider Family Medicine; Visit Provider Family Medicine | DX: E78.00 Pure hypercholesterolemia, unspecified (principal); N41.9 Inflammatory disease of prostate, unspecified; Z11.3 Encounter for screening for infections with a predominantly sexual mode of transmission; Z11.4 Encounter for screening for human immunodeficiency virus [HIV]; Z12.5 Encounter for screening for malignant neoplasm of prostate | CPT/HCPCS: 80061; 84153; 86703; 87491; 87591 ==

== ENCOUNTER 2025-06-12 07:51 | Outpatient (CLI) | payer BC, SELFPAY ==
--- NOTE | 2025-06-12 08:00 | CRLHL7_ITS ---
For Patients: As a result of the 21st Century Cures Act, medical imaging exams and procedure reports are released immediately into your electronic medical record. You may view this report before your referring provider. If you have questions, please contact your health care provider. INDICATION: Hodgkin`s lymphoma, follow up. TECHNIQUE: CT chest, abdomen, and pelvis acquired with 80 mL Isovue 370 IV contrast. COMPARISON: CT chest/abdomen/pelvis dated 11/22/2024. FINDINGS: CHEST: Lungs and pleura: No focal consolidation. New 0.2 cm pulmonary nodule in the right upper lobe (series 3, image 31). Heart and vessels: No cardiomegaly, no pericardial effusion. Thyroid and lower neck: No suspicious thyroid nodule. Mediastinum/jeff: No lymphadenopathy. Chest wall: No axillary lymphadenopathy. ABDOMEN/PELVIS: Liver: No suspicious focal hepatic lesion. Gallbladder and bile ducts: Cholelithiasis. No secondary signs of acute cholecystitis. Pancreas: Unremarkable. Spleen: Stable exophytic hypodense lesion in the inferior spleen, with partial peripheral calcifications. Splenule is noted. Adrenal glands: Unremarkable. Kidneys: Kidneys enhance symmetrically, without hydronephrosis. Stable punctate hypodense lesion in the lower pole of the right kidney. Retroperitoneum: No lymphadenopathy. Bowel and mesentery: Bowel is not obstructed. No significant ascites. Scattered colonic diverticulosis, without evidence of acute diverticulitis. Mild short segment wall thickening of the proximal sigmoid colon, not significantly changed. Normal appendix. Bladder: Unremarkable for degree of distention. Reproductive organs: No significant prostatomegaly. Pelvic lymph nodes: No lymphadenopathy. Vessels: Few scattered atherosclerotic calcifications. Abdominal wall: No acute abdominal wall abnormality. Bones: Multilevel degenerative changes of the spine. No suspicious/aggressive focal osseous lesion. IMPRESSION: 1. No lymphadenopathy identified within the chest, abdomen, or pelvis. 2. Mild short segment wall thickening of the proximal sigmoid colon, favored to reflect muscular hypertrophy in the setting of chronic inflammation. Recommend correlation with routine colonoscopy/any recent colonoscopy results. 3. New 0.2 cm pulmonary nodule in the right upper lobe, likely infectious/inflammatory in etiology. Attention on follow-up is recommended. Please note that all CT scans at this facility use dose modulation, iterative reconstruction, and/or weight-based dosing when appropriate to reduce radiation dose to as low as reasonably achievable. Dictated by Lien Huang MD @ 06/13/2025 8:12:14 PM (Electronically Signed)
== END 2025-06-12 07:52 | disposition home or self-care (01) ==
LOC: CT 07:51
PROVIDERS: PCP Family Medicine; Visit Provider Internal Medicine Hematology & Oncology
DX: C81.70 Other Hodgkin lymphoma, unspecified site (principal); R91.8 Other nonspecific abnormal finding of lung field
CPT/HCPCS: 71260; 74177; Q9967